=== PATIENT | male | born 1945 | race African-American/Black ===

== ENCOUNTER 2018-04-17 13:35 | Inpatient (IN) | payer OTHER ==
[~2018-04-17] VITALS: Ht 180.3 cm; Wt 83.0 kg
[2018-04-17] MEDS ORDERED: htn meds (13:55)
[2018-04-17] MEDS ORDERED: [UNRECOGNIZED DRUG - OTHER] (13:55)
[2018-04-17] MEDS ORDERED: [UNRECOGNIZED DRUG - REMARK] (13:55)
[2018-04-17] MEDS ORDERED: IPRATROPIUM BROMIDE 0.5 MG/2.5 ML NEBU. NEB ONE (14:00)
[2018-04-17] MEDS ORDERED: ALBUTEROL SULFATE 2.5 MG/3 ML NEBU. CONT NEB ONE ×2 (14:00→15:30)
[2018-04-17] MEDS ORDERED: methylPREDNISolone SOD SUCC PF 125 MG/2 ML VIAL. IV ONE (14:00)
[2018-04-17 14:03] LABS: BASO # 0.1 x10^3/uL (0.0-0.2); BASO % 1 % (0-3); EOS # 0.3 x10^3/uL (0.0-0.7); EOS % 2 % (0-3); HEMATOCRIT 29.6 % (39.0-53.0); LYMPH # 1.2 x10^3/uL (1.0-4.8); LYMPH % 8 % (24-48); MEAN CORPUSCULAR HEMOGLOBIN 26 pg (25-35); MEAN CORPUSCULAR HGB CONC 34 g/dL (31-37); MEAN CORPUSCULAR VOLUME 78 fL (79-100); MONO # 0.7 x10^3/uL (0.0-1.1); MONO % 5 % (0-9); NEUT % 85 % (31-73); PLATELET COUNT 440 x10^3/uL (140-400); RED CELL DISTRIBUTION WIDTH 17.3 % (11.5-14.5); WHITE BLOOD COUNT 15.3 x10^3/uL (4.0-11.0)
[2018-04-17 14:14] LABS: CALCIUM 9.8 mg/dL (8.5-10.1); CREATININE 1.9 mg/dL (0.7-1.3); GFR 35.1; POTASSIUM 3.9 mmol/L (3.5-5.1)
--- NOTE | 2018-04-17 14:20 | RAD ---
PORTABLE CHEST 1V INDICATION: SOB, COUGH, CHEST PAIN, FATIGUE, WEAKNESS, COPD, HX HYPERTENTION, HX HYPERLIPDEMIA. COMPARISON: None. FINDINGS: Normal lung volume. No focal consolidation. Bilateral hilar fullness. No pleural effusion or pneumothorax. Cardiomediastinal silhouette and great vessels are normal. No acute osseous abnormality. IMPRESSION: 1. No focal consolidation. 2. Bilateral hilar fullness which could relate to pulmonary hypertension. Hilar adenopathy not excluded. Recommend short-term follow-up radiographs. Alternatively, CT chest with contrast can be considered. Electronically signed by: Ray Dukes MD (04/17/2018 2:16 PM) [facility]
[2018-04-17 14:28] LABS: % BASOS 3 % (0-3); % EOS 4 % (0-5); % LYMPHS 12 % (24-48); % MONOS 4 % (0-10); % SEGS 77 % (35-66); PLT ESTIMATE ADEQUATE (ADEQUATE)
[2018-04-17 14:29] LABS: ANISOCYTOSIS SLIGHT; MICROCYTOSIS SLIGHT
[2018-04-17] MEDS ORDERED: HYDROcodone/APAP 5/325MG 1 TAB TABLET PO ONE (14:45)
[2018-04-17] MEDS ORDERED: IBUPROFEN 400 MG TABLET. PO ONE (14:45)
--- NOTE | 2018-04-17 15:10 | PHYS DOC ---
Past Medical History Past Medical History: Asthma, Diabetes-Type II, Hypertension Alcohol Use: Sober Drug Use: Marijuana Adult General Chief Complaint Chief Complaint: SHORTNESS OF BREATH HPI HPI Patient is a 72 year old male who presents with dyspnea. Patient has had worsening asthma symptoms over the last 5 days. He has had a cough productive of what he describes to be purulent sputum. He has had some chills but no fever. The patient does have a lifelong history of asthma. Today, he presents to the ER stating that his medications at home were not relieving his dyspnea symptoms. He does not normally use oxygen at home. Denies chest pain. No LE edema or orthopnea. Review of Systems Review of Systems Constitutional: Denies fever or chills Eyes: Denies change in visual acuity HENT: Denies nasal congestion Respiratory: dyspnea and cough described above Cardiovascular: No additional information not addressed in HPI GI: Denies abdominal pain, nausea, vomiting : Denies dysuria or hematuria Musculoskeletal: Denies back pain Integument: Denies rash or skin lesions Neurologic: Denies headache All other systems were reviewed and found to be within normal limits, except as documented in this note. Current Medications Current Medications Current Medications Medications (Trade) Dose Ordered Sig/Jacob Start Time Stop Time Status Last Admin Dose Admin Acetaminophen/ Hydrocodone Bitart (Lortab 5/325) 2 tab 1X ONCE 04/17/18 14:45 04/17/18 14:46 UNV Albuterol Sulfate (Ventolin Neb Soln) 10 mg 1X ONCE 04/17/18 15:30 04/17/18 15:31 DC 04/17/18 15:33 10 MG Azithromycin 250 ml @ 250 mls/hr 1X ONCE 04/17/18 16:15 04/17/18 17:14 Ceftriaxone Sodium 50 ml @ 100 mls/hr 1X ONCE 04/17/18 16:15 04/17/18 16:44 Ibuprofen (Motrin) 800 mg 1X ONCE 04/17/18 14:45 04/17/18 14:46 UNV Ipratropium [place] (Atrovent) 0.5 mg 1X ONCE 04/17/18 14:00 04/17/18 14:01 DC 04/17/18 13:59 0.5 MG Magnesium Sulfate 50 ml @ 25 mls/hr 1X ONCE 04/17/18 15:15 04/17/18 17:14 04/17/18 15:26 25 MLS/HR Methylprednisolone Sodium Succinate (SOLU-Medrol 125MG VIAL) 125 mg 1X ONCE 04/17/18 14:00 04/17/18 14:01 DC 04/17/18 14:05 125 MG Sodium Chloride 1,000 ml @ 1,000 mls/hr 1X ONCE 04/17/18 15:15 04/17/18 16:14 DC 04/17/18 15:26 1,000 MLS/HR Allergies Allergies Allergies Coded Allergies Type Severity Reaction Last Updated Verified No Known Drug Allergies 04/17/18 No Physical Exam Physical Exam Constitutional: Well developed, well nourished, mild respiratory distress, ill- appearing, coughing HENT: Normocephalic, atraumatic, bilateral external ears normal, oropharynx moist Eyes: PERRLA, EOMI, conjunctiva normal Neck: Normal range of motion, no tenderness Cardiovascular: regular tachy heart rate regular rhythm, no murmur Lungs & Thorax: bilateral diminished lung sounds with prolonged expiratory phase and wheezes in all ricardo, coughing a wet sounding cough during the interview Abdomen: Bowel sounds normal, soft Skin: Warm, dry, no erythema, no rash Extremities: No tenderness, no edema Neurologic: Alert and oriented X 3 Psychologic: Affect normal Current Patient Data Vital Signs Vital Signs Date Time Temp Pulse Resp B/P (MAP) Pulse Ox O2 Delivery O2 Flow Rate FiO2 04/17/18 15:38 100 Room Air 04/17/18 13:39 97.8 107 26 129/79 (96) 97.8 Lab Values Laboratory Tests Test 04/17/18 13:46 White Blood Count 15.3 x10^3/uL (4.0-11.0) H Red Blood Count 3.80 x10^6/uL (4.30-5.70) L Hemoglobin 10.0 g/dL (13.0-17.5) L Hematocrit 29.6 % (39.0-53.0) L Mean Corpuscular Volume 78 fL (79-100) L Mean Corpuscular Hemoglobin 26 pg (25-35) Mean Corpuscular Hemoglobin Concent 34 g/dL (31-37) Red Cell Distribution Width 17.3 % (11.5-14.5) H Platelet Count 440 x10^3/uL (140-400) H Neutrophils (%) (Auto) 85 % (31-73) H Lymphocytes (%) (Auto) 8 % (24-48) L Monocytes (%) (Auto) 5 % (0-9) Eosinophils (%) (Auto) 2 % (0-3) Basophils (%) (Auto) 1 % (0-3) Neutrophils # (Auto) 13.0 x10^3uL (1.8-7.7) H Lymphocytes # (Auto) 1.2 x10^3/uL (1.0-4.8) Monocytes # (Auto) 0.7 x10^3/uL (0.0-1.1) Eosinophils # (Auto) 0.3 x10^3/uL (0.0-0.7) Basophils # (Auto) 0.1 x10^3/uL (0.0-0.2) Segmented Neutrophils % 77 % (35-66) H Lymphocytes % 12 % (24-48) L Monocytes % 4 % (0-10) Eosinophils % 4 % (0-5) Basophils % 3 % (0-3) Platelet Estimate Adequate (ADEQUATE) Large Platelets Occ Anisocytosis Slight Microcytosis Slight Sodium Level 137 mmol/L (136-145) Potassium Level 3.9 mmol/L (3.5-5.1) Chloride Level 102 mmol/L (98-107) Carbon Dioxide Level 24 mmol/L (21-32) Anion Gap 11 (6-14) Blood Urea Nitrogen 14 mg/dL (8-26) Creatinine 1.9 mg/dL (0.7-1.3) H Estimated GFR (Cockcroft-Gault) 35.1 Glucose Level 204 mg/dL (70-99) H Calcium Level 9.8 mg/dL (8.5-10.1) Troponin I Quantitative < 0.017 ng/mL (0.000-0.055) UD-Qna-J-Type Natriuretic Peptide 391 pg/mL (0-124) H Laboratory Tests 04/17/18 13:46 Laboratory Tests 04/17/18 13:46 EKG EKG No STEMI Interpretation Time: 13:50 Radiology/Procedures Radiology/Procedures CXR: FINDINGS: Normal lung volume. No focal consolidation. Bilateral hilar fullness. No pleural effusion or pneumothorax. Cardiomediastinal silhouette and great vessels are normal. No acute osseous abnormality. IMPRESSION: 1. No focal consolidation. 2. Bilateral hilar fullness which could relate to pulmonary hypertension. Hilar adenopathy not excluded. Recommend short-term follow-up radiographs. Alternatively, CT chest with contrast can be considered. CT chest: Findings: There is a mass in the left lower lobe extending back from the hilum. It measures about 7.1 cm AP and 4.6 cm mediolaterally. There are some peripheral infiltrate-like opacities elsewhere in the left lower lobe. An area of opacity is also seen extending anteriorly in the right middle lobe. This has more the appearance of a region of consolidation in the lung, although neoplasm is possible. This area measures about 5.9 cm in greatest transverse dimension, but only about 1.6 cm craniocaudally. Other ill-defined opacities are seen scattered through the right middle and lower lobes. These could be infectious, although other areas of neoplasm cannot be excluded. The left lower lobe bronchus is occluded extending into the area of the mass. The mass is inseparable from the left hilum, but no separate enlarged left hilar lymph nodes are seen. There is subcarinal soft tissue fullness suspicious for mild adenopathy. Images through the upper abdomen show a left renal cyst. There is mild thickening of the left adrenal gland without evidence of a discrete nodule. IMPRESSION: There is a left lower lobe abnormality suspicious for malignancy. Other areas of opacity in the lungs may all be infectious/inflammatory, although multifocal malignancy or metastatic disease is possible. Course & Med Decision Making Course & Med Decision Making Pertinent Labs and Imaging studies reviewed. (See chart for details) 16:20 patient is evaluated in the emergency department for some respiratory symptoms and asthma and productive cough. The patient does have a significant tobacco history of having smoked up to 2 packs of cigarettes daily from ages 19 through age 71. He does not currently use tobacco. His workup in the ER is positive for a suspicious lung mass. His white blood cell count was mildly elevated. Unclear if his results represent infection or malignancy. CT scan was completed for further evaluation but the patient's creatinine was elevated so contrast could not be used. He was given 1 L of normal saline in the ER. Pro- calcitonin is added to his lab panel. He is empirically started on Rocephin and azithromycin. He will be admitted to the hospitalist service. Consults are placed for nephrology and pulmonology to see the patient. Of note, the patient denies any prior history of kidney failure. Prior to admission, all results are reviewed and discussed with the patient and his and all of their questions are answered. He is agreeable to the admission plan of care. Dragon Disclaimer Dragon Disclaimer This electronic medical record was generated, in whole or in part, using a voice recognition dictation system. Departure Departure Referrals: BARRY DIEHL (PCP) ZACH ALVAREZ DO Apr 17, 2018 15:10
[2018-04-17] MEDS ORDERED: IV NORMAL SALINE 1000ML BAG 1,000 ML IV ONE (15:15)
[2018-04-17] MEDS ORDERED: MAGNESIUM SULFATE 2GM 50 ML IV ONE (15:15)
--- NOTE | 2018-04-17 16:01 | RAD ---
CT CHEST WO CONTRAST dated 04/17/2018 3:25 PM Indication:SHORTNESS OF BREATH, AND COUGH, HX OF ASTHMA Comparison: Chest radiograph of earlier in the day. Technique: Noncontrast images were performed. Sagittal and coronal reconstructions were obtained. One or more of the following individualized dose reduction techniques were utilized for this examination: 1. Automated exposure control 2. Adjustment of the mA and/or kV according to patient size 3. Use of iterative reconstruction technique Findings: There is a mass in the left lower lobe extending back from the hilum. It measures about 7.1 cm AP and 4.6 cm mediolaterally. There are some peripheral infiltrate-like opacities elsewhere in the left lower lobe. An area of opacity is also seen extending anteriorly in the right middle lobe. This has more the appearance of a region of consolidation in the lung, although neoplasm is possible. This area measures about 5.9 cm in greatest transverse dimension, but only about 1.6 cm craniocaudally. Other ill-defined opacities are seen scattered through the right middle and lower lobes. These could be infectious, although other areas of neoplasm cannot be excluded. The left lower lobe bronchus is occluded extending into the area of the mass. The mass is inseparable from the left hilum, but no separate enlarged left hilar lymph nodes are seen. There is subcarinal soft tissue fullness suspicious for mild adenopathy. Images through the upper abdomen show a left renal cyst. There is mild thickening of the left adrenal gland without evidence of a discrete nodule. IMPRESSION: There is a left lower lobe abnormality suspicious for malignancy. Other areas of opacity in the lungs may all be infectious/inflammatory, although multifocal malignancy or metastatic disease is possible. Electronically signed by: Xavier Green Jr., MD (04/17/2018 3:58 PM) [facility] [place]
[2018-04-17] MEDS ORDERED: AZITHRMYCN 500MG IVPB FOR OMNI 250 ML IV ONE (16:15)
[2018-04-17] MEDS ORDERED: ACETAMINOPHEN 325 MG TABLET. PO PRN (17:00)
[2018-04-17] MEDS ORDERED: ONDANSETRON PF 4 MG/2 ML VIAL. IV PRN ×2 (17:00→20:15)
--- NOTE | 2018-04-17 17:49 | PDOC1 ---
History and Physical Date of Admission Date of Admission DATE: 04/17/18 TIME: 17:47 Identification/Chief Complaint Chief Complaint Shortness of breath History of Present Illness History of Present Illness 72 year old male w/ PMHx DM, COPD, ex-smoker who p/w dyspnea. Patient has had worsening asthma symptoms over the last 5 days. He has had a cough productive of what he describes to be purulent brownish sputum. He has had some chills but no fever. Today, he presents to the ER stating that his medications (albuterol ) at home were not relieving his dyspnea symptoms. He does not normally use oxygen at home. Denies chest pain. No LE edema or orthopnea. In ED he was noted to be very rhonchorous and wheezing, improved with 1 hour of nebulizers and CXR noted bilateral infiltrates, on CT was noted to be a 7.1 cm AP and 4.6 cm mediolaterally mass in the left lower lobe intruding on the bronchus and a 5.9 x 1.6cm infiltrate in the right lung suspicious for pneumonia. He was also noted with a Cr of 1.9, he notes he has no history of renal disease. The patient does have a lifelong history of asthma, was told via CXR 2 years ago he had emphysema and at the time he stopped smoking. He was also diagnosed with diabetes 15 years ago and noted he wanted to stop taking medications so made an active effort over 2 years ago to lose weight and he intentionally lost 175 pounds with portion control and exercise. 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 He is being admitted for the above respiratory problems and renal failure. Past Medical History Cardiovascular: No pertinent hx Pulmonary: Asthma, COPD GI: No pertinent hx Heme/Onc: No pertinent hx Hepatobiliary: No pertinent hx Psych: No pertinent hx Rheumatologic: No pertinent hx Infectious disease: No pertinent hx ENT: No pertinent hx Renal/: Benign prostatic enlarg. Endocrine: Diabetes Dermatology: No pertinent hx Past Surgical History Past Surgical History: Cholecystectomy, Other (TURP) Family History Family History: Diabetes Family History: Parent (Diabetes in mother and father) Social History Smoke: Quit (2 PPD smoker, quit 2 years ago) ALCOHOL: none Drugs: None Current Medications Current Medications Current Medications Albuterol Sulfate (Ventolin Neb Soln) 10 mg 1X ONCE CONT NEB Last administered on 04/17/18at 13:59; Start 04/17/18 at 14:00; Stop 04/17/18 at 14 :01; Status DC Ipratropium [place] (Atrovent) 0.5 mg 1X ONCE NEB Last administered on at 13:59; Start 04/17/18 at 14:00; Stop 04/17/18 at 14:01; Status DC Methylprednisolone Sodium Succinate (SOLU-Medrol 125MG VIAL) 125 mg 1X ONCE IV Last administered on 04/17/18at 14:05; Start 04/17/18 at 14:00; Stop at 14:01; Status DC Ibuprofen (Motrin) 800 mg 1X ONCE PO ; Start 04/17/18 at 14:45; Stop at 14:46; Status UNV Acetaminophen/ Hydrocodone Bitart (Lortab 5/325) 2 tab 1X ONCE PO ; Start at 14:45; Stop 04/17/18 at 14:46; Status UNV Sodium Chloride 1,000 ml @ 1,000 mls/hr 1X ONCE IV Last administered on 04/17at 15:26; Start 04/17/18 at 15:15; Stop 04/17/18 at 16:14; Status DC Magnesium Sulfate 50 ml @ 25 mls/hr 1X ONCE IV Last administered on at 15:26; Start 04/17/18 at 15:15; Stop 04/17/18 at 17:14; Status DC Albuterol Sulfate (Ventolin Neb Soln) 10 mg 1X ONCE CONT NEB Last administered on 04/17/18at 15:33; Start 04/17/18 at 15:30; Stop 04/17/18 at 15 :31; Status DC Azithromycin 250 ml @ 250 mls/hr 1X ONCE IV Last administered on 04/17/18at 17:25; Start 04/17/18 at 16:15; Stop 04/17/18 at 17:14; Status DC Ceftriaxone Sodium 50 ml @ 100 mls/hr 1X ONCE IV Last administered on at 16:37; Start 04/17/18 at 16:15; Stop 04/17/18 at 16:44; Status DC Ondansetron HCl (Zofran) 4 mg PRN Q8HRS PRN IV NAUSEA/VOMITING; Start at 17:00; Stop 04/18/18 at 16:59 Acetaminophen (Tylenol) 650 mg PRN Q4HRS PRN PO FEVER; Start 04/17/18 at 17:00 ; Stop 04/18/18 at 16:59 Albuterol/ Ipratropium (Duoneb) 3 ml RTQID NEB ; Start 04/17/18 at 20:00; Stop 04/18/18 at 19:59 Active Scripts Active Reported [asthma meds] [htn meds] [diabetes type 2 meds] Allergies Allergies: Coded Allergies: No Known Drug Allergies (Unverified , 04/17/18) ROS General: No: Chills, Night Sweats, Fatigue, Malaise, Appetite, Other PSYCHOLOGICAL ROS: No: Anxiety, Behavioral Disorder, Concentration difficultie , Decreased libido, Depression, Disorientation, Hallucinations, Hostility, Irritablity, Memory difficulties, Mood Swings, Obsessive thoughts, Physical abuse, Sexual abuse, Sleep disturbances, Suicidal ideation, Other Eyes: No Blurry vision, No Decreased vision, No Double vision, No Dry eyes, No Excessive tearing, No Eye Pain, No Itchy Eyes, No Loss of vision, No Photophobia , No Scotomata, No Uses contacts, No Uses glasses, No Other HEENT: No: Heacaches, Visual Changes, Hearing change, Nasal congestion, Nasal discharge, Oral lesions, Sinus pain, Sore Throat, Epistaxis, Sneezing, Snoring, Tinnitus, Vertigo, Vocal changes, Other ALLERGY AND IMMUNOLOGY: No: Hives, Insect Bite Sensitivity, Itchy/Watery Eyes, Nasal Congestion, Post Nasal Drip, Seasonal Allergies, Other Hematological and Lymphatic: No: Bleeding Problems, Blood Clots, Blood Transfusions, Brusing, Night Sweats, Pallor, Swollen Lymph Nodes, Other ENDOCRINE: No: Breast Changes, Galactorrhea, Hair Pattern Changes, Hot Flashes , Malaise/lethargy, Mood Swings, Palpitations, Polydipsia/polyuria, Skin Changes , Temperature Intolerance, Unexpected Weight Changes, Other Breast: No New/Changing Breast Lumps, No Nipple changes, No Nipple discharge, No Other Respiratory: YES: Cough, Shortness of breath, SOB with excertion, Sputum Changes, Tachypnea, Wheezing; No: Hemoptysis, Orthopnea, Pleuritic Pain, Stridor, Other Cardiovascular: No Chest Pain, No Palpitations, No Orthopnea, No Paroxysmal Noc. Dyspnea, No Edema, No Lt Headedness, No Other Gastrointestinal: No Nausea, No Vomiting, No Abdominal Pain, No Diarrhea, No Constipation, No Melena, No Hematochezia, No Other Genitourinary: No Dysuria, No Frequency, No Incontinence, No Hematuria, No Retention, No Discharge, No Urgency, No Pain, No Flank Pain, No Other, No , No , No , No , No , No , No Musculoskeletal: No Gait Disturbance, No Joint Pain, No Joint Stiffness, No Joint Swelling, No Muscle Pain, No Muscular Weakness, No Pain In:, No Swelling In:, No Other Neurological: No Behavorial Changes, No Bowel/Bladder ControlChng, No Confusion , No Dizziness, No Gait Disturbance, No Headaches, No Impaired Coord/balance, No Memory Loss, No Numbness/Tingling, No Seizures, No Speech Problems, No Tremors, No Visual Changes, No Weakness, No Other Skin: No Dry Skin, No Eczema, No Hair Changes, No Lumps, No Mole Changes, No Mottling, No Nail Changes, No Pruritus, No Rash, No Skin Lesion Changes, No Other, No Acne Physical Exam General: Alert, Oriented X3, Cooperative, No acute distress HEENT: Atraumatic, PERRLA, EOMI, Mucous membr. moist/pink Lungs: Other (BIlateral rhonchi and scattered wheezing) Heart: S1S2, RRR, no murmurs Abdomen: Normal bowel sounds, Soft, No tenderness, No hepatosplenomegaly, No masses Rectal Exam: not examined Extremities: No clubbing, No cyanosis, No edema, Normal pulses, No tenderness/ swelling Skin: No rashes, No breakdown, No significant lesion Neuro: Normal gait, Normal speech, Strength at 5/5 X4 ext, Normal tone, Sensation intact, Cranial nerves 3-12 NL, Reflexes 2+ Psych/Mental Status: Mental status NL, Mood NL Vitals Vitals Vital Signs Date Time Temp Pulse Resp B/P (MAP) Pulse Ox O2 Delivery O2 Flow Rate FiO2 04/17/18 15:38 100 Room Air 04/17/18 13:39 97.8 107 26 129/79 (96) 97.8 Labs Labs Laboratory Tests Test 04/17/18 13:46 White Blood Count 15.3 x10^3/uL (4.0-11.0) Red Blood Count 3.80 x10^6/uL (4.30-5.70) Hemoglobin 10.0 g/dL (13.0-17.5) Hematocrit 29.6 % (39.0-53.0) Mean Corpuscular Volume 78 fL (79-100) Mean Corpuscular Hemoglobin 26 pg (25-35) Mean Corpuscular Hemoglobin Concent 34 g/dL (31-37) Red Cell Distribution Width 17.3 % (11.5-14.5) Platelet Count 440 x10^3/uL (140-400) Neutrophils (%) (Auto) 85 % (31-73) Lymphocytes (%) (Auto) 8 % (24-48) Monocytes (%) (Auto) 5 % (0-9) Eosinophils (%) (Auto) 2 % (0-3) Basophils (%) (Auto) 1 % (0-3) Neutrophils # (Auto) 13.0 x10^3uL (1.8-7.7) Lymphocytes # (Auto) 1.2 x10^3/uL (1.0-4.8) Monocytes # (Auto) 0.7 x10^3/uL (0.0-1.1) Eosinophils # (Auto) 0.3 x10^3/uL (0.0-0.7) Basophils # (Auto) 0.1 x10^3/uL (0.0-0.2) Segmented Neutrophils % 77 % (35-66) Lymphocytes % 12 % (24-48) Monocytes % 4 % (0-10) Eosinophils % 4 % (0-5) Basophils % 3 % (0-3) Platelet Estimate Adequate (ADEQUATE) Large Platelets Occ Anisocytosis Slight Microcytosis Slight Sodium Level 137 mmol/L (136-145) Potassium Level 3.9 mmol/L (3.5-5.1) Chloride Level 102 mmol/L (98-107) Carbon Dioxide Level 24 mmol/L (21-32) Anion Gap 11 (6-14) Blood Urea Nitrogen 14 mg/dL (8-26) Creatinine 1.9 mg/dL (0.7-1.3) Estimated GFR (Cockcroft-Gault) 35.1 Glucose Level 204 mg/dL (70-99) Calcium Level 9.8 mg/dL (8.5-10.1) Troponin I Quantitative < 0.017 ng/mL (0.000-0.055) NO-Ftx-Q-Type Natriuretic Peptide 391 pg/mL (0-124) Laboratory Tests Test 04/17/18 13:46 White Blood Count 15.3 x10^3/uL (4.0-11.0) Red Blood Count 3.80 x10^6/uL (4.30-5.70) Hemoglobin 10.0 g/dL (13.0-17.5) Hematocrit 29.6 % (39.0-53.0) Mean Corpuscular Volume 78 fL (79-100) Mean Corpuscular Hemoglobin 26 pg (25-35) Mean Corpuscular Hemoglobin Concent 34 g/dL (31-37) Red Cell Distribution Width 17.3 % (11.5-14.5) Platelet Count 440 x10^3/uL (140-400) Neutrophils (%) (Auto) 85 % (31-73) Lymphocytes (%) (Auto) 8 % (24-48) Monocytes (%) (Auto) 5 % (0-9) Eosinophils (%) (Auto) 2 % (0-3) Basophils (%) (Auto) 1 % (0-3) Neutrophils # (Auto) 13.0 x10^3uL (1.8-7.7) Lymphocytes # (Auto) 1.2 x10^3/uL (1.0-4.8) Monocytes # (Auto) 0.7 x10^3/uL (0.0-1.1) Eosinophils # (Auto) 0.3 x10^3/uL (0.0-0.7) Basophils # (Auto) 0.1 x10^3/uL (0.0-0.2) Segmented Neutrophils % 77 % (35-66) Lymphocytes % 12 % (24-48) Monocytes % 4 % (0-10) Eosinophils % 4 % (0-5) Basophils % 3 % (0-3) Platelet Estimate Adequate (ADEQUATE) Large Platelets Occ Anisocytosis Slight Microcytosis Slight Sodium Level 137 mmol/L (136-145) Potassium Level 3.9 mmol/L (3.5-5.1) Chloride Level 102 mmol/L (98-107) Carbon Dioxide Level 24 mmol/L (21-32) Anion Gap 11 (6-14) Blood Urea Nitrogen 14 mg/dL (8-26) Creatinine 1.9 mg/dL (0.7-1.3) Estimated GFR (Cockcroft-Gault) 35.1 Glucose Level 204 mg/dL (70-99) Calcium Level 9.8 mg/dL (8.5-10.1) Troponin I Quantitative < 0.017 ng/mL (0.000-0.055) DJ-Uea-G-Type Natriuretic Peptide 391 pg/mL (0-124) VTE Prophylaxis Ordered VTE Prophylaxis Devices: No VTE Pharmacological Prophylaxi: Yes Assessment/Plan Assessment/Plan A/P: Acute COPD exacerbation - steroids, nebs, consult pulm Right middle lobe pneumonia - appears to be an infiltrate, will treat as CAP with azithromycin and rocephin Lung Mass - Left lower lobe infiltrating the bronchus, will consult pulm for possible bronchoscopy and endobronchial biopsy vs EBUS ARF - likely prerenal from his illness, will start IVF, consult nephro DM2 - diet controlled, will place on SSI BPH - no symptoms currently, states he is s/p turp FEN - ADA diet PPX - heparin FULL CODE Inpatient for at least 2 midnights for above complicated illness JOELLEN BEAUCHAMP MD Apr 17, 2018 17:49
[2018-04-17 19:00] VITALS: BP 114/78
[2018-04-17] MEDS ORDERED: LISI10TA2 PO (19:04)
[2018-04-17] MEDS ORDERED: METF500T16 PO (19:04)
[2018-04-17] MEDS ORDERED: IPRA3AMP29 INH (19:05)
[2018-04-17] MEDS: IPRATRPIUM/ALBUTEROL 0.5/2.5MG 3 ML NEBU. NEB SCH (19:46)
[2018-04-17] MEDS ORDERED: DEXTROSE 50% 25 GM / 50ML DISP.SYRIN. IV PRN (20:00)
[2018-04-17] MEDS ORDERED: oxyCODONE IR 5 MG TABLET PO PRN (20:15)
[2018-04-17] MEDS: SENNOSIDES/DOCUSATE 8.6/50MG TABLET. PO SCH (20:38)
[2018-04-17] MEDS: IV RINGERS,LACTATED 1000ML 1,000 ML IV SCH (20:42)
[2018-04-17] MEDS: guaiFENesin DM 200MG/20MG 10 ML SYRUP PO PRN (20:42)
[2018-04-17] MEDS: HEPARIN for SUB-Q USE 5,000 UNIT/ML VIAL. SQ SCH (20:43)
[2018-04-17] MEDS: INSULIN LISPRO 300 UNITS/3 ML INSULN.PEN. SQ SCH (21:16)
[2018-04-17 23:00] VITALS: BP 137/80
[2018-04-18] MEDS: guaiFENesin DM 200MG/20MG 10 ML SYRUP PO PRN (00:50)
[2018-04-18 03:00] VITALS: BP 141/81
[2018-04-18 05:50] LABS: BASO % 0 % (0-3); EOS % 0 % (0-3); HEMATOCRIT 26.7 % (39.0-53.0); HEMOGLOBIN 8.7 g/dL (13.0-17.5); LYMPH % 6 % (24-48); MEAN CORPUSCULAR HEMOGLOBIN 26 pg (25-35); MEAN CORPUSCULAR HGB CONC 33 g/dL (31-37); MEAN CORPUSCULAR VOLUME 79 fL (79-100); MONO # 0.6 x10^3/uL (0.0-1.1); MONO % 4 % (0-9); NEUT % 90 % (31-73); PLATELET COUNT 364 x10^3/uL (140-400); RED CELL DISTRIBUTION WIDTH 17.4 % (11.5-14.5); WHITE BLOOD COUNT 15.6 x10^3/uL (4.0-11.0)
[2018-04-18] MEDS: IV RINGERS,LACTATED 1000ML 1,000 ML IV SCH ×2 (05:51→17:00)
[2018-04-18 06:07] LABS: CALCIUM 8.7 mg/dL (8.5-10.1); CREATININE 1.7 mg/dL (0.7-1.3); GFR 48.3; POTASSIUM 4.4 mmol/L (3.5-5.1)
[2018-04-18 07:00] VITALS: BP 154/71
[2018-04-18] MEDS: IPRATRPIUM/ALBUTEROL 0.5/2.5MG 3 ML NEBU. NEB SCH ×4 (07:46→20:19)
[2018-04-18] MEDS: INSULIN LISPRO 300 UNITS/3 ML INSULN.PEN. SQ SCH ×4 (08:00→21:50)
--- NOTE | 2018-04-18 08:06 | EKG ---
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
[2018-04-18] MEDS: SENNOSIDES/DOCUSATE 8.6/50MG TABLET. PO SCH ×2 (08:23→21:41)
[2018-04-18] MEDS: HEPARIN for SUB-Q USE 5,000 UNIT/ML VIAL. SQ SCH ×2 (08:23→21:50)
[2018-04-18] MEDS ORDERED: levOFLOXacin PER PHARMACY. MC PRN (10:00)
[2018-04-18] MEDS ORDERED: traMADol 50 MG TABLET PO PRN (10:00)
[2018-04-18] MEDS ORDERED: MORPHINE SULFATE 2 MG/ML VIAL. IV PRN (10:00)
[2018-04-18] MEDS ORDERED: DOCUSATE SODIUM 100 MG CAPSULE. PO PRN (10:00)
[2018-04-18] MEDS ORDERED: ACETAMINOPHEN 325 MG TABLET. PO PRN (10:00)
[2018-04-18] MEDS ORDERED: ALBUTEROL SULFATE 2.5 MG/3 ML NEBU. NEB PRN (10:00)
[2018-04-18] MEDS ORDERED: ONDANSETRON PF 4 MG/2 ML VIAL. IV PRN (10:00)
[2018-04-18 11:00] VITALS: BP 146/70
--- NOTE | 2018-04-18 11:09 | CONS ---
DATE OF CONSULTATION: ATTENDING PHYSICIAN: Dr. Galan. REASON FOR CONSULTATION: Lung mass. HISTORY OF PRESENT ILLNESS: The patient is a 72-year-old male who has been a smoker for at least 50 years, quit a year ago. He presented to the hospital with history of shortness of breath and cough for 3 days. Cough is mostly nonproductive. No chest pain, no headache, no nausea or vomiting, no diarrhea, no focal weakness. No skin rash. No significant weight loss. He underwent CT chest, which was reviewed by me. The patient has a mass-like consolidation involving the left lower lobe. There may be an endobronchial lesion in the left lower lobe bronchus. There is also left hilar prominence. The patient also has a consolidation in the right middle lobe. I have been asked to see him for further evaluation. PAST MEDICAL HISTORY: Significant for history of suspected COPD, history of BPH and diabetes. PAST SURGICAL HISTORY: Cholecystectomy and TURP. SOCIAL HISTORY: Smoker for 50 years, quit a year ago. Does not drink alcohol. ALLERGIES: None. CURRENT MEDICATIONS: Reviewed as listed in the MRAD including antibiotics and IV steroids and DuoNeb. REVIEW OF SYSTEMS: Twelve-point system obtained. Pertinent positives discussed in my history of present illness, otherwise noncontributory. All systems that were negative were reviewed as well. PHYSICAL EXAMINATION: VITAL SIGNS: Reviewed, pulse ox 95% on room air. HEENT: PERRLA. Sclerae nonicteric. NECK: Supple. LUNGS: With diminished breath sounds posteriorly. No wheezing. CARDIOVASCULAR: Regular rate and rhythm. ABDOMEN: Soft, nontender. EXTREMITIES: With no pitting edema. LABORATORY DATA: Reviewed. White cell count 15.6, hemoglobin 8.7 and platelets are 364. BUN and creatinine 16 and 1.7. IMPRESSION: 1. Dyspnea secondary to multifactorial etiologies including acute exacerbation of chronic obstructive pulmonary disease and suspected bronchogenic cancer involving the left lower lobe and possible in the right middle lobe. 2. Abnormal CT chest with mass-like consolidation involving the left lower lobe with possible endobronchial lesion in the left lower lobe as well. There is left hilar prominence and there is consolidation in the right middle lobe. Malignancy is a concern, although he does not have any symptoms suggesting malignancy such as weight loss. Bronchoscopy is scheduled for tomorrow and he agrees with that. 3. Renal insufficiency. 4. Leukocytosis could be postobstructive pneumonia. RECOMMENDATIONS: 1. Discussed with the patient regarding the risk and benefits of bronchoscopy and he agrees to proceed with it. 2. N.p.o. past midnight and bronchoscopy will be scheduled in the morning. 3. Continue present bronchodilators. 4. Continue IV steroids. 5. Continue antibiotics. 6. Further recommendations to follow after bronchoscopy. YUSRA BARAKAT MD DR: DARIEN/purnima JOB#: [id number] / [id number]
--- NOTE | 2018-04-18 12:13 | PDOC ---
PROGRESS NOTES Chief Complaint Chief Complaint Acute COPD exacerbation Right middle lobe pneumonia - Lung Mass ARF vs. CKD3 DM2 - BPH - prevous smoker microcytic anemia plan: fu with pulm, talked to pulm, bronch with bx tmr add duoneb, albuterol prn, solumedrol tid, levaquin consult renal, US renal pending ivf for now lisinopril, metformin held, ssi cough meds anemia panel dvt, gi ppx History of Present Illness History of Present Illness ROS: no fever, chills chest pain moderate sob, some cough, bl moderate wheezing. wants go home anemia, denies weight loss or gib cr 1.7 from 1.9 Vitals Vitals Vital Signs Date Time Temp Pulse Resp B/P (MAP) Pulse Ox O2 Delivery O2 Flow Rate FiO2 04/18/18 11:49 Room Air 04/18/18 11:00 98.1 78 18 146/70 (95) 91 98.1 Physical Exam General: Alert, Oriented X3, Cooperative, No acute distress Heart: Regular rate, Normal S1, Normal S2 Lungs: Wheezing (bl moderate) Abdomen: Normal bowel sounds, Soft, No tenderness, No hepatosplenomegaly, No masses Extremities: No clubbing, No cyanosis, No edema, Normal pulses, No tenderness/ swelling Skin: No rashes, No breakdown, No significant lesion Labs LABS Laboratory Tests Test 04/17/18 13:46 04/17/18 18:16 04/17/18 21:03 04/18/18 05:05 White Blood Count 15.3 x10^3/uL (4.0-11.0) 15.6 x10^3/uL (4.0-11.0) Red Blood Count 3.80 x10^6/uL (4.30-5.70) 3.40 x10^6/uL (4.30-5.70) Hemoglobin 10.0 g/dL (13.0-17.5) 8.7 g/dL (13.0-17.5) Hematocrit 29.6 % (39.0-53.0) 26.7 % (39.0-53.0) Mean Corpuscular Volume 78 fL (79-100) 79 fL (79-100) Mean Corpuscular Hemoglobin 26 pg (25-35) 26 pg (25-35) Mean Corpuscular Hemoglobin Concent 34 g/dL (31-37) 33 g/dL (31-37) Red Cell Distribution Width 17.3 % (11.5-14.5) 17.4 % (11.5-14.5) Platelet Count 440 x10^3/uL (140-400) 364 x10^3/uL (140-400) Neutrophils (%) (Auto) 85 % (31-73) 90 % (31-73) Lymphocytes (%) (Auto) 8 % (24-48) 6 % (24-48) Monocytes (%) (Auto) 5 % (0-9) 4 % (0-9) Eosinophils (%) (Auto) 2 % (0-3) 0 % (0-3) Basophils (%) (Auto) 1 % (0-3) 0 % (0-3) Neutrophils # (Auto) 13.0 x10^3uL (1.8-7.7) 14.0 x10^3uL (1.8-7.7) Lymphocytes # (Auto) 1.2 x10^3/uL (1.0-4.8) 1.0 x10^3/uL (1.0-4.8) Monocytes # (Auto) 0.7 x10^3/uL (0.0-1.1) 0.6 x10^3/uL (0.0-1.1) Eosinophils # (Auto) 0.3 x10^3/uL (0.0-0.7) 0.0 x10^3/uL (0.0-0.7) Basophils # (Auto) 0.1 x10^3/uL (0.0-0.2) 0.0 x10^3/uL (0.0-0.2) Segmented Neutrophils % 77 % (35-66) Lymphocytes % 12 % (24-48) Monocytes % 4 % (0-10) Eosinophils % 4 % (0-5) Basophils % 3 % (0-3) Platelet Estimate Adequate (ADEQUATE) Large Platelets Occ Anisocytosis Slight Microcytosis Slight Sodium Level 137 mmol/L (136-145) 139 mmol/L (136-145) Potassium Level 3.9 mmol/L (3.5-5.1) 4.4 mmol/L (3.5-5.1) Chloride Level 102 mmol/L (98-107) 104 mmol/L (98-107) Carbon Dioxide Level 24 mmol/L (21-32) 25 mmol/L (21-32) Anion Gap 11 (6-14) 10 (6-14) Blood Urea Nitrogen 14 mg/dL (8-26) 16 mg/dL (8-26) Creatinine 1.9 mg/dL (0.7-1.3) 1.7 mg/dL (0.7-1.3) Estimated GFR (Cockcroft-Gault) 35.1 48.3 Glucose Level 204 mg/dL (70-99) 180 mg/dL (70-99) Calcium Level 9.8 mg/dL (8.5-10.1) 8.7 mg/dL (8.5-10.1) Troponin I Quantitative < 0.017 ng/mL (0.000-0.055) NE-Dlc-R-Type Natriuretic Peptide 391 pg/mL (0-124) Procalcitonin 0.24 ng/mL (0.00-0.10) Ethyl Alcohol Level < 10 mg/dL (0-10) Glucose (Fingerstick) 189 mg/dL (70-99) 243 mg/dL (70-99) Test 04/18/18 07:46 04/18/18 11:02 Glucose (Fingerstick) 105 mg/dL (70-99) 165 mg/dL (70-99) Comment Review of Relevant I have reviewed the following items gonzales (where applicable) has been applied. Labs Laboratory Tests Test 04/17/18 13:46 04/17/18 18:16 04/17/18 21:03 04/18/18 05:05 White Blood Count 15.3 x10^3/uL (4.0-11.0) 15.6 x10^3/uL (4.0-11.0) Red Blood Count 3.80 x10^6/uL (4.30-5.70) 3.40 x10^6/uL (4.30-5.70) Hemoglobin 10.0 g/dL (13.0-17.5) 8.7 g/dL (13.0-17.5) Hematocrit 29.6 % (39.0-53.0) 26.7 % (39.0-53.0) Mean Corpuscular Volume 78 fL (79-100) 79 fL (79-100) Mean Corpuscular Hemoglobin 26 pg (25-35) 26 pg (25-35) Mean Corpuscular Hemoglobin Concent 34 g/dL (31-37) 33 g/dL (31-37) Red Cell Distribution Width 17.3 % (11.5-14.5) 17.4 % (11.5-14.5) Platelet Count 440 x10^3/uL (140-400) 364 x10^3/uL (140-400) Neutrophils (%) (Auto) 85 % (31-73) 90 % (31-73) Lymphocytes (%) (Auto) 8 % (24-48) 6 % (24-48) Monocytes (%) (Auto) 5 % (0-9) 4 % (0-9) Eosinophils (%) (Auto) 2 % (0-3) 0 % (0-3) Basophils (%) (Auto) 1 % (0-3) 0 % (0-3) Neutrophils # (Auto) 13.0 x10^3uL (1.8-7.7) 14.0 x10^3uL (1.8-7.7) Lymphocytes # (Auto) 1.2 x10^3/uL (1.0-4.8) 1.0 x10^3/uL (1.0-4.8) Monocytes # (Auto) 0.7 x10^3/uL (0.0-1.1) 0.6 x10^3/uL (0.0-1.1) Eosinophils # (Auto) 0.3 x10^3/uL (0.0-0.7) 0.0 x10^3/uL (0.0-0.7) Basophils # (Auto) 0.1 x10^3/uL (0.0-0.2) 0.0 x10^3/uL (0.0-0.2) Segmented Neutrophils % 77 % (35-66) Lymphocytes % 12 % (24-48) Monocytes % 4 % (0-10) Eosinophils % 4 % (0-5) Basophils % 3 % (0-3) Platelet Estimate Adequate (ADEQUATE) Large Platelets Occ Anisocytosis Slight Microcytosis Slight Sodium Level 137 mmol/L (136-145) 139 mmol/L (136-145) Potassium Level 3.9 mmol/L (3.5-5.1) 4.4 mmol/L (3.5-5.1) Chloride Level 102 mmol/L (98-107) 104 mmol/L (98-107) Carbon Dioxide Level 24 mmol/L (21-32) 25 mmol/L (21-32) Anion Gap 11 (6-14) 10 (6-14) Blood Urea Nitrogen 14 mg/dL (8-26) 16 mg/dL (8-26) Creatinine 1.9 mg/dL (0.7-1.3) 1.7 mg/dL (0.7-1.3) Estimated GFR (Cockcroft-Gault) 35.1 48.3 Glucose Level 204 mg/dL (70-99) 180 mg/dL (70-99) Calcium Level 9.8 mg/dL (8.5-10.1) 8.7 mg/dL (8.5-10.1) Troponin I Quantitative < 0.017 ng/mL (0.000-0.055) JO-Usg-S-Type Natriuretic Peptide 391 pg/mL (0-124) Procalcitonin 0.24 ng/mL (0.00-0.10) Ethyl Alcohol Level < 10 mg/dL (0-10) Glucose (Fingerstick) 189 mg/dL (70-99) 243 mg/dL (70-99) Test 04/18/18 07:46 04/18/18 11:02 Glucose (Fingerstick) 105 mg/dL (70-99) 165 mg/dL (70-99) Laboratory Tests Test 04/17/18 13:46 04/17/18 18:16 04/17/18 21:03 04/18/18 05:05 White Blood Count 15.3 x10^3/uL (4.0-11.0) 15.6 x10^3/uL (4.0-11.0) Red Blood Count 3.80 x10^6/uL (4.30-5.70) 3.40 x10^6/uL (4.30-5.70) Hemoglobin 10.0 g/dL (13.0-17.5) 8.7 g/dL (13.0-17.5) Hematocrit 29.6 % (39.0-53.0) 26.7 % (39.0-53.0) Mean Corpuscular Volume 78 fL (79-100) 79 fL (79-100) Mean Corpuscular Hemoglobin 26 pg (25-35) 26 pg (25-35) Mean Corpuscular Hemoglobin Concent 34 g/dL (31-37) 33 g/dL (31-37) Red Cell Distribution Width 17.3 % (11.5-14.5) 17.4 % (11.5-14.5) Platelet Count 440 x10^3/uL (140-400) 364 x10^3/uL (140-400) Neutrophils (%) (Auto) 85 % (31-73) 90 % (31-73) Lymphocytes (%) (Auto) 8 % (24-48) 6 % (24-48) Monocytes (%) (Auto) 5 % (0-9) 4 % (0-9) Eosinophils (%) (Auto) 2 % (0-3) 0 % (0-3) Basophils (%) (Auto) 1 % (0-3) 0 % (0-3) Neutrophils # (Auto) 13.0 x10^3uL (1.8-7.7) 14.0 x10^3uL (1.8-7.7) Lymphocytes # (Auto) 1.2 x10^3/uL (1.0-4.8) 1.0 x10^3/uL (1.0-4.8) Monocytes # (Auto) 0.7 x10^3/uL (0.0-1.1) 0.6 x10^3/uL (0.0-1.1) Eosinophils # (Auto) 0.3 x10^3/uL (0.0-0.7) 0.0 x10^3/uL (0.0-0.7) Basophils # (Auto) 0.1 x10^3/uL (0.0-0.2) 0.0 x10^3/uL (0.0-0.2) Segmented Neutrophils % 77 % (35-66) Lymphocytes % 12 % (24-48) Monocytes % 4 % (0-10) Eosinophils % 4 % (0-5) Basophils % 3 % (0-3) Platelet Estimate Adequate (ADEQUATE) Large Platelets Occ Anisocytosis Slight Microcytosis Slight Sodium Level 137 mmol/L (136-145) 139 mmol/L (136-145) Potassium Level 3.9 mmol/L (3.5-5.1) 4.4 mmol/L (3.5-5.1) Chloride Level 102 mmol/L (98-107) 104 mmol/L (98-107) Carbon Dioxide Level 24 mmol/L (21-32) 25 mmol/L (21-32) Anion Gap 11 (6-14) 10 (6-14) Blood Urea Nitrogen 14 mg/dL (8-26) 16 mg/dL (8-26) Creatinine 1.9 mg/dL (0.7-1.3) 1.7 mg/dL (0.7-1.3) Estimated GFR (Cockcroft-Gault) 35.1 48.3 Glucose Level 204 mg/dL (70-99) 180 mg/dL (70-99) Calcium Level 9.8 mg/dL (8.5-10.1) 8.7 mg/dL (8.5-10.1) Troponin I Quantitative < 0.017 ng/mL (0.000-0.055) JD-Bps-C-Type Natriuretic Peptide 391 pg/mL (0-124) Procalcitonin 0.24 ng/mL (0.00-0.10) Ethyl Alcohol Level < 10 mg/dL (0-10) Glucose (Fingerstick) 189 mg/dL (70-99) 243 mg/dL (70-99) Test 04/18/18 07:46 04/18/18 11:02 Glucose (Fingerstick) 105 mg/dL (70-99) 165 mg/dL (70-99) Medications Current Medications Albuterol Sulfate (Ventolin Neb Soln) 10 mg 1X ONCE CONT NEB Last administered on 04/17/18at 13:59; Start 04/17/18 at 14:00; Stop 04/17/18 at 14 :01; Status DC Ipratropium [place] (Atrovent) 0.5 mg 1X ONCE NEB Last administered on at 13:59; Start 04/17/18 at 14:00; Stop 04/17/18 at 14:01; Status DC Methylprednisolone Sodium Succinate (SOLU-Medrol 125MG VIAL) 125 mg 1X ONCE IV Last administered on 04/17/18at 14:05; Start 04/17/18 at 14:00; Stop at 14:01; Status DC Ibuprofen (Motrin) 800 mg 1X ONCE PO ; Start 04/17/18 at 14:45; Stop at 14:46; Status UNV Acetaminophen/ Hydrocodone Bitart (Lortab 5/325) 2 tab 1X ONCE PO ; Start at 14:45; Stop 04/17/18 at 14:46; Status UNV Sodium Chloride 1,000 ml @ 1,000 mls/hr 1X ONCE IV Last administered on 04/17at 15:26; Start 04/17/18 at 15:15; Stop 04/17/18 at 16:14; Status DC Magnesium Sulfate 50 ml @ 25 mls/hr 1X ONCE IV Last administered on at 15:26; Start 04/17/18 at 15:15; Stop 04/17/18 at 17:14; Status DC Albuterol Sulfate (Ventolin Neb Soln) 10 mg 1X ONCE CONT NEB Last administered on 04/17/18at 15:33; Start 04/17/18 at 15:30; Stop 04/17/18 at 15 :31; Status DC Azithromycin 250 ml @ 250 mls/hr 1X ONCE IV Last administered on 04/17/18at 17:25; Start 04/17/18 at 16:15; Stop 04/17/18 at 17:14; Status DC Ceftriaxone Sodium 50 ml @ 100 mls/hr 1X ONCE IV Last administered on at 16:37; Start 04/17/18 at 16:15; Stop 04/17/18 at 16:44; Status DC Ondansetron HCl (Zofran) 4 mg PRN Q8HRS PRN IV NAUSEA/VOMITING; Start at 17:00; Stop 04/17/18 at 20:28; Status DC Acetaminophen (Tylenol) 650 mg PRN Q4HRS PRN PO FEVER; Start 04/17/18 at 17:00 ; Stop 04/18/18 at 09:51; Status DC Albuterol/ Ipratropium (Duoneb) 3 ml RTQID NEB Last administered on 04/18/18at 07:46; Start 04/17/18 at 20:00; Stop 04/18/18 at 09:52; Status DC Insulin Human Lispro (HumaLOG) 0-5 UNITS TIDWMEALHC SQ ; Start 04/17/18 at 21: 00 Dextrose (Dextrose 50%-Water Syringe) 12.5 gm PRN Q15MIN PRN IV SEE COMMENTS; Start 04/17/18 at 20:00 Guaifenesin (Robitussin Dm) 10 ml PRN Q4HRS PRN PO COUGH Last administered on 04/18/18at 00:50; Start 04/17/18 at 20:00 Ringer's Solution 1,000 ml @ 100 mls/hr Q10H IV Last administered on at 05:51; Start 04/17/18 at 21:00 Ondansetron HCl (Zofran) 4 mg PRN Q6HRS PRN IV NAUSEA/VOMITING; Start at 20:15; Stop 04/18/18 at 09:51; Status DC Oxycodone HCl (Roxicodone) 5 mg PRN Q3HRS PRN PO BREAKTHROUGH PAIN; Start at 20:15 Senna/Docusate Sodium (Senna Plus) 1 tab BID PO ; Start 04/17/18 at 21:00 Heparin Sodium (Porcine) (Heparin Sodium) 5,000 unit Q12HR SQ Last administered on 04/18/18at 08:23; Start 04/17/18 at 21:00 Acetaminophen (Tylenol) 650 mg PRN Q6HRS PRN PO FEVER; Start 04/18/18 at 10:00 Ondansetron HCl (Zofran) 4 mg PRN Q6HRS PRN IV NAUSEA/VOMITING; Start at 10:00 Morphine Sulfate (Morphine Sulfate) 2 mg PRN Q2HR PRN IV MODERATE TO SEVERE PAIN; Start 04/18/18 at 10:00 Tramadol HCl (Ultram) 50 mg PRN Q6HRS PRN PO MILD TO MODERATE PAIN; Start at 10:00 Docusate Sodium (Colace) 100 mg PRN DAILY PRN PO CONSTIPATION; Start 04/18/18 at 10:00 Albuterol/ Ipratropium (Duoneb) 3 ml RTQID NEB Last administered on 04/18/18at 11:49; Start 04/18/18 at 12:00 Albuterol Sulfate (Ventolin Neb Soln) 2.5 mg PRN Q2HR PRN NEB SHORTNESS OF BREATH; Start 04/18/18 at 10:00 Guaifenesin (Mucinex) 600 mg BID PO Last administered on 04/18/18at 10:37; Start 04/18/18 at 10:00 Methylprednisolone Sodium Succinate (SOLU-Medrol 40MG VIAL) 40 mg Q8HRS IV ; Start 04/18/18 at 14:00 Famotidine (Pepcid) 20 mg QHS PO ; Start 04/18/18 at 21:00 Levofloxacin/ Dextrose 150 ml @ 100 mls/hr 1X ONCE IV Last administered on at 10:37; Start 04/18/18 at 10:00; Stop 04/18/18 at 11:29; Status DC Levofloxacin/ Dextrose (Levaquin Per Pharmacy) 1 each PRN DAILY PRN MC SEE COMMENTS; Start 04/18/18 at 10:00 Levofloxacin/ Dextrose 50 ml @ 50 mls/hr Q24H IV ; Start 04/19/18 at 11:00 Active Scripts Active Reported Duoneb 0.5-3(2.5) Mg/3 Ml (Albuterol/Ipratropium) 3 Ml Ampul.neb 3 Ml INH BID Lisinopril 10 Mg Tablet 10 Mg PO DAILY Metformin Hcl 500 Mg Tablet 500 Mg PO DAILY [asthma meds] [htn meds] [diabetes type 2 meds] Vitals/I & O Vital Sign - Last 24 Hours 04/17/18 04/17/18 04/17/18 04/17/18 13:39 14:00 15:38 18:24 Temp 97.8 97.8 Pulse 107 Resp 26 B/P (MAP) 129/79 (96) Pulse Ox 95 93 100 O2 Delivery Room Air Room Air Room Air Room Air 04/17/18 04/17/18 04/17/18 04/17/18 19:00 19:25 19:52 23:00 Temp 97.5 96.1 97.5 96.1 Pulse 86 91 Resp 16 16 B/P (MAP) 114/78 (90) 137/80 (99) Pulse Ox 92 97 96 O2 Delivery Room Air Room Air Room Air Room Air 04/18/18 04/18/18 04/18/18 04/18/18 03:00 07:00 07:45 07:46 Temp 97.6 98.8 97.6 98.8 Pulse 91 81 Resp 16 18 B/P (MAP) 141/81 (101) 154/71 (98) Pulse Ox 95 95 97 O2 Delivery Room Air Room Air Room Air Room Air 04/18/18 04/18/18 11:00 11:49 Temp 98.1 98.1 Pulse 78 Resp 18 B/P (MAP) 146/70 (95) Pulse Ox 91 O2 Delivery Room Air Room Air Intake and Output 04/17/18 04/17/18 04/18/18 15:00 23:00 07:00 Intake Total 1100 ml 1080 ml Balance 1100 ml 1080 ml CATHIE LYN MD Apr 18, 2018 12:13
--- NOTE | 2018-04-18 12:31 | PDOC2 ---
CONSULT Date of Consult Date of Consult DATE: 04/18/18 TIME: 12:30 Reason for Consult Reason for Consult: Elevated creatinine. Referring Physician Referring Physician: Dr. Loo Identification/Chief Complaint Chief Complaint Unable to breathe Source Source: Chart review, Patient History of Present Illness Reason for Visit: Matt is a 72-year-old -[place] gentleman who was a smoker until about a year ago. He has been seen as an outpatient by his primary care provider but was not aware of known renal insufficiency per se. He presented to the ER with complaints of shortness of breath cough labs were production as well as subjective fevers. He was noted to have a creatinine of 1.9 at presentation that is improved to 1.7 today with IV fluids. There were asked to see him for renal insufficiency. He is breathing is slightly better with nebulizer treatments. He currently using oxygen. 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 His diabetes has not complicated by retinopathy that he is aware of. He claims his eyesight is good enough that he still goes to the shooting range. He is noted to be somewhat anemic. He denies GI blood losses. He denies difficulty urinating. He does take pain medications from time to time but denies significant NSAID use per se. Past Medical History Pulmonary: Asthma, COPD Rheumatologic: Other (occasional joint pain) ENT: No pertinent hx Renal/: Benign prostatic enlarg., Other (no formal diagnosis of chronic kidney disease) Endocrine: Diabetes Past Surgical History Past Surgical History: Cholecystectomy, Other (TURP) Family History Family History: Diabetes, Other (patient denies knowledge of kidney problems in the family) Social History Social History: Parent (Diabetes in mother and father) Quit (2 PPD smoker, quit 2 years ago) ALCOHOL: none Drugs: None Lives: with Family Current Medications Current Medications Current Medications Albuterol Sulfate (Ventolin Neb Soln) 10 mg 1X ONCE CONT NEB Last administered on 04/17/18at 13:59; Start 04/17/18 at 14:00; Stop 04/17/18 at 14 :01; Status DC Ipratropium [place] (Atrovent) 0.5 mg 1X ONCE NEB Last administered on at 13:59; Start 04/17/18 at 14:00; Stop 04/17/18 at 14:01; Status DC Methylprednisolone Sodium Succinate (SOLU-Medrol 125MG VIAL) 125 mg 1X ONCE IV Last administered on 04/17/18at 14:05; Start 04/17/18 at 14:00; Stop at 14:01; Status DC Ibuprofen (Motrin) 800 mg 1X ONCE PO ; Start 04/17/18 at 14:45; Stop at 14:46; Status UNV Acetaminophen/ Hydrocodone Bitart (Lortab 5/325) 2 tab 1X ONCE PO ; Start at 14:45; Stop 04/17/18 at 14:46; Status UNV Sodium Chloride 1,000 ml @ 1,000 mls/hr 1X ONCE IV Last administered on 04/17at 15:26; Start 04/17/18 at 15:15; Stop 04/17/18 at 16:14; Status DC Magnesium Sulfate 50 ml @ 25 mls/hr 1X ONCE IV Last administered on at 15:26; Start 04/17/18 at 15:15; Stop 04/17/18 at 17:14; Status DC Albuterol Sulfate (Ventolin Neb Soln) 10 mg 1X ONCE CONT NEB Last administered on 04/17/18at 15:33; Start 04/17/18 at 15:30; Stop 04/17/18 at 15 :31; Status DC Azithromycin 250 ml @ 250 mls/hr 1X ONCE IV Last administered on 04/17/18at 17:25; Start 04/17/18 at 16:15; Stop 04/17/18 at 17:14; Status DC Ceftriaxone Sodium 50 ml @ 100 mls/hr 1X ONCE IV Last administered on at 16:37; Start 04/17/18 at 16:15; Stop 04/17/18 at 16:44; Status DC Ondansetron HCl (Zofran) 4 mg PRN Q8HRS PRN IV NAUSEA/VOMITING; Start at 17:00; Stop 04/17/18 at 20:28; Status DC Acetaminophen (Tylenol) 650 mg PRN Q4HRS PRN PO FEVER; Start 04/17/18 at 17:00 ; Stop 04/18/18 at 09:51; Status DC Albuterol/ Ipratropium (Duoneb) 3 ml RTQID NEB Last administered on 04/18/18at 07:46; Start 04/17/18 at 20:00; Stop 04/18/18 at 09:52; Status DC Insulin Human Lispro (HumaLOG) 0-5 UNITS TIDWMEALHC SQ ; Start 04/17/18 at 21: 00 Dextrose (Dextrose 50%-Water Syringe) 12.5 gm PRN Q15MIN PRN IV SEE COMMENTS; Start 04/17/18 at 20:00 Guaifenesin (Robitussin Dm) 10 ml PRN Q4HRS PRN PO COUGH Last administered on 04/18/18at 00:50; Start 04/17/18 at 20:00 Ringer's Solution 1,000 ml @ 100 mls/hr Q10H IV Last administered on at 05:51; Start 04/17/18 at 21:00 Ondansetron HCl (Zofran) 4 mg PRN Q6HRS PRN IV NAUSEA/VOMITING; Start at 20:15; Stop 04/18/18 at 09:51; Status DC Oxycodone HCl (Roxicodone) 5 mg PRN Q3HRS PRN PO BREAKTHROUGH PAIN; Start at 20:15 Senna/Docusate Sodium (Senna Plus) 1 tab BID PO ; Start 04/17/18 at 21:00 Heparin Sodium (Porcine) (Heparin Sodium) 5,000 unit Q12HR SQ Last administered on 04/18/18at 08:23; Start 04/17/18 at 21:00 Acetaminophen (Tylenol) 650 mg PRN Q6HRS PRN PO FEVER; Start 04/18/18 at 10:00 Ondansetron HCl (Zofran) 4 mg PRN Q6HRS PRN IV NAUSEA/VOMITING; Start at 10:00 Morphine Sulfate (Morphine Sulfate) 2 mg PRN Q2HR PRN IV MODERATE TO SEVERE PAIN; Start 04/18/18 at 10:00 Tramadol HCl (Ultram) 50 mg PRN Q6HRS PRN PO MILD TO MODERATE PAIN; Start at 10:00 Docusate Sodium (Colace) 100 mg PRN DAILY PRN PO CONSTIPATION; Start 04/18/18 at 10:00 Albuterol/ Ipratropium (Duoneb) 3 ml RTQID NEB Last administered on 04/18/18at 11:49; Start 04/18/18 at 12:00 Albuterol Sulfate (Ventolin Neb Soln) 2.5 mg PRN Q2HR PRN NEB SHORTNESS OF BREATH; Start 04/18/18 at 10:00 Guaifenesin (Mucinex) 600 mg BID PO Last administered on 04/18/18at 10:37; Start 04/18/18 at 10:00 Methylprednisolone Sodium Succinate (SOLU-Medrol 40MG VIAL) 40 mg Q8HRS IV ; Start 04/18/18 at 14:00 Famotidine (Pepcid) 20 mg QHS PO ; Start 04/18/18 at 21:00 Levofloxacin/ Dextrose 150 ml @ 100 mls/hr 1X ONCE IV Last administered on at 10:37; Start 04/18/18 at 10:00; Stop 04/18/18 at 11:29; Status DC Levofloxacin/ Dextrose (Levaquin Per Pharmacy) 1 each PRN DAILY PRN MC SEE COMMENTS; Start 04/18/18 at 10:00 Levofloxacin/ Dextrose 50 ml @ 50 mls/hr Q24H IV ; Start 04/19/18 at 11:00 Active Scripts Active Reported Duoneb 0.5-3(2.5) Mg/3 Ml (Albuterol/Ipratropium) 3 Ml Ampul.neb 3 Ml INH BID Lisinopril 10 Mg Tablet 10 Mg PO DAILY Metformin Hcl 500 Mg Tablet 500 Mg PO DAILY [asthma meds] [htn meds] [diabetes type 2 meds] Allergies Allergies: Coded Allergies: No Known Drug Allergies (Unverified , 04/17/18) ROS Review of System GEN: lo grd Fevers no Chills EYES: no Visual Complaints ENT: no EN Drainage no Hearing deficiets CVS: no Orthopnea no CP RESP: ++ SOB + MONTIEL with cough phlegm and sputum production. GI: no Nausea no Vomiting : no Dysuria mp Urgency HEME: mp easy bruising noPalp Ly Nodes NEURO no Focal Weakness no recent Sz PSYCH: denies Suicidal Ideation no Depression SKIN: no Rashes ENDO: no Polyuria or Polydipsia no Hot/Cold Intolerance MU SK: no Arthraigia no Myalgia Physical Exam Physical Exam General Appearance: [ ] Awake Alert Oriented x 3 In no Distress Eyes: VIsion Unchanged Conjunctiva Normal, cannot rule out some periorbital edema EN: No EN Drainage Mucous Memb. moist Neck: no JVD no JVP Supple no Thyromegaly CVS: S1 S2 soft Murmur No Gallop No Rub no Edema Resp: no Rales end exp Rhonchi no Acc. Muscle use GI: BAS +ve NO Bruit Non Tender Non Distended : no CVA tenderness; no Suprapubic Tenderness SKIN: no Rashes Breast Exam deferred Mu.Sk: Adequate ROM no Muscle Atrophy Heme: Unable to palpate Obvious LAD no Splenomegaly NEURO: Good Strength and Tone Cranial Nerves II - XII grossly intact Psych: no Depressed no Active hallucination Vital Signs Vital Signs Date Time Temp Pulse Resp B/P (MAP) Pulse Ox O2 Delivery O2 Flow Rate FiO2 04/18/18 11:49 Room Air 04/18/18 11:00 98.1 78 18 146/70 (95) 91 98.1 Assessment & Plan Acute renal failure versus chronic kidney disease. Baseline creatinine is not available in our system.:Current FLuid and E-lyte status does not necessitate emergent need for Dialysis. Some underlying chronic kidney disease on the basis of diabetic hypertensive nephrosclerosis cannot be ruled out. We'll check UA and renal sonogram. Anemia: Check iron profile. as needed. HTN: Current BP meds reviewed. Patient appears to have been on an JOSÉ MIGUEL-i for a prolonged period of Time and hence I believe it should be okay to continue the same. Lung mass is currently being evaluated by Dr. Lutz Discussed Plan of Care and prognosis etc. at length with patient Labs Labs Laboratory Tests Test 04/17/18 13:46 04/17/18 18:16 04/17/18 21:03 04/18/18 05:05 White Blood Count 15.3 x10^3/uL (4.0-11.0) 15.6 x10^3/uL (4.0-11.0) Red Blood Count 3.80 x10^6/uL (4.30-5.70) 3.40 x10^6/uL (4.30-5.70) Hemoglobin 10.0 g/dL (13.0-17.5) 8.7 g/dL (13.0-17.5) Hematocrit 29.6 % (39.0-53.0) 26.7 % (39.0-53.0) Mean Corpuscular Volume 78 fL (79-100) 79 fL (79-100) Mean Corpuscular Hemoglobin 26 pg (25-35) 26 pg (25-35) Mean Corpuscular Hemoglobin Concent 34 g/dL (31-37) 33 g/dL (31-37) Red Cell Distribution Width 17.3 % (11.5-14.5) 17.4 % (11.5-14.5) Platelet Count 440 x10^3/uL (140-400) 364 x10^3/uL (140-400) Neutrophils (%) (Auto) 85 % (31-73) 90 % (31-73) Lymphocytes (%) (Auto) 8 % (24-48) 6 % (24-48) Monocytes (%) (Auto) 5 % (0-9) 4 % (0-9) Eosinophils (%) (Auto) 2 % (0-3) 0 % (0-3) Basophils (%) (Auto) 1 % (0-3) 0 % (0-3) Neutrophils # (Auto) 13.0 x10^3uL (1.8-7.7) 14.0 x10^3uL (1.8-7.7) Lymphocytes # (Auto) 1.2 x10^3/uL (1.0-4.8) 1.0 x10^3/uL (1.0-4.8) Monocytes # (Auto) 0.7 x10^3/uL (0.0-1.1) 0.6 x10^3/uL (0.0-1.1) Eosinophils # (Auto) 0.3 x10^3/uL (0.0-0.7) 0.0 x10^3/uL (0.0-0.7) Basophils # (Auto) 0.1 x10^3/uL (0.0-0.2) 0.0 x10^3/uL (0.0-0.2) Segmented Neutrophils % 77 % (35-66) Lymphocytes % 12 % (24-48) Monocytes % 4 % (0-10) Eosinophils % 4 % (0-5) Basophils % 3 % (0-3) Platelet Estimate Adequate (ADEQUATE) Large Platelets Occ Anisocytosis Slight Microcytosis Slight Sodium Level 137 mmol/L (136-145) 139 mmol/L (136-145) Potassium Level 3.9 mmol/L (3.5-5.1) 4.4 mmol/L (3.5-5.1) Chloride Level 102 mmol/L (98-107) 104 mmol/L (98-107) Carbon Dioxide Level 24 mmol/L (21-32) 25 mmol/L (21-32) Anion Gap 11 (6-14) 10 (6-14) Blood Urea Nitrogen 14 mg/dL (8-26) 16 mg/dL (8-26) Creatinine 1.9 mg/dL (0.7-1.3) 1.7 mg/dL (0.7-1.3) Estimated GFR (Cockcroft-Gault) 35.1 48.3 Glucose Level 204 mg/dL (70-99) 180 mg/dL (70-99) Calcium Level 9.8 mg/dL (8.5-10.1) 8.7 mg/dL (8.5-10.1) Troponin I Quantitative < 0.017 ng/mL (0.000-0.055) ZM-Lsm-Z-Type Natriuretic Peptide 391 pg/mL (0-124) Procalcitonin 0.24 ng/mL (0.00-0.10) Ethyl Alcohol Level < 10 mg/dL (0-10) Glucose (Fingerstick) 189 mg/dL (70-99) 243 mg/dL (70-99) Test 04/18/18 07:46 04/18/18 11:02 Glucose (Fingerstick) 105 mg/dL (70-99) 165 mg/dL (70-99) Laboratory Tests Test 04/17/18 13:46 04/17/18 18:16 04/17/18 21:03 04/18/18 05:05 White Blood Count 15.3 x10^3/uL (4.0-11.0) 15.6 x10^3/uL (4.0-11.0) Red Blood Count 3.80 x10^6/uL (4.30-5.70) 3.40 x10^6/uL (4.30-5.70) Hemoglobin 10.0 g/dL (13.0-17.5) 8.7 g/dL (13.0-17.5) Hematocrit 29.6 % (39.0-53.0) 26.7 % (39.0-53.0) Mean Corpuscular Volume 78 fL (79-100) 79 fL (79-100) Mean Corpuscular Hemoglobin 26 pg (25-35) 26 pg (25-35) Mean Corpuscular Hemoglobin Concent 34 g/dL (31-37) 33 g/dL (31-37) Red Cell Distribution Width 17.3 % (11.5-14.5) 17.4 % (11.5-14.5) Platelet Count 440 x10^3/uL (140-400) 364 x10^3/uL (140-400) Neutrophils (%) (Auto) 85 % (31-73) 90 % (31-73) Lymphocytes (%) (Auto) 8 % (24-48) 6 % (24-48) Monocytes (%) (Auto) 5 % (0-9) 4 % (0-9) Eosinophils (%) (Auto) 2 % (0-3) 0 % (0-3) Basophils (%) (Auto) 1 % (0-3) 0 % (0-3) Neutrophils # (Auto) 13.0 x10^3uL (1.8-7.7) 14.0 x10^3uL (1.8-7.7) Lymphocytes # (Auto) 1.2 x10^3/uL (1.0-4.8) 1.0 x10^3/uL (1.0-4.8) Monocytes # (Auto) 0.7 x10^3/uL (0.0-1.1) 0.6 x10^3/uL (0.0-1.1) Eosinophils # (Auto) 0.3 x10^3/uL (0.0-0.7) 0.0 x10^3/uL (0.0-0.7) Basophils # (Auto) 0.1 x10^3/uL (0.0-0.2) 0.0 x10^3/uL (0.0-0.2) Segmented Neutrophils % 77 % (35-66) Lymphocytes % 12 % (24-48) Monocytes % 4 % (0-10) Eosinophils % 4 % (0-5) Basophils % 3 % (0-3) Platelet Estimate Adequate (ADEQUATE) Large Platelets Occ Anisocytosis Slight Microcytosis Slight Sodium Level 137 mmol/L (136-145) 139 mmol/L (136-145) Potassium Level 3.9 mmol/L (3.5-5.1) 4.4 mmol/L (3.5-5.1) Chloride Level 102 mmol/L (98-107) 104 mmol/L (98-107) Carbon Dioxide Level 24 mmol/L (21-32) 25 mmol/L (21-32) Anion Gap 11 (6-14) 10 (6-14) Blood Urea Nitrogen 14 mg/dL (8-26) 16 mg/dL (8-26) Creatinine 1.9 mg/dL (0.7-1.3) 1.7 mg/dL (0.7-1.3) Estimated GFR (Cockcroft-Gault) 35.1 48.3 Glucose Level 204 mg/dL (70-99) 180 mg/dL (70-99) Calcium Level 9.8 mg/dL (8.5-10.1) 8.7 mg/dL (8.5-10.1) Troponin I Quantitative < 0.017 ng/mL (0.000-0.055) FY-Cra-R-Type Natriuretic Peptide 391 pg/mL (0-124) Procalcitonin 0.24 ng/mL (0.00-0.10) Ethyl Alcohol Level < 10 mg/dL (0-10) Glucose (Fingerstick) 189 mg/dL (70-99) 243 mg/dL (70-99) Test 04/18/18 07:46 04/18/18 11:02 Glucose (Fingerstick) 105 mg/dL (70-99) 165 mg/dL (70-99) Review All relevant outside records, renal labs, imaging studies, telemetry/EKG's were reviewed. Images Images Images through the upper abdomen show a left renal cyst. There is mild thickening of the left adrenal gland without evidence of a discrete nodule. IMPRESSION: There is a left lower lobe abnormality suspicious for malignancy. Other areas of opacity in the lungs may all be infectious/inflammatory, although multifocal malignancy or metastatic disease is possibl REGINALDO KRAUS MD Apr 18, 2018 12:31
--- NOTE | 2018-04-18 13:07 | RAD ---
Renal ultrasound 04/18/2018. Reason for exam: Acute renal failure and history of chronic kidney disease. FINDINGS: The kidneys have normal cortical thickness and echogenicity for age. No solid mass or obstruction is seen. The right kidney measures 10.2 cm in length and the left kidney measures 10.5 cm. Small cysts are seen bilaterally. The larger is in the upper left kidney and measures 3.9 cm. Scanning at the bladder shows no abnormality. IMPRESSION: No evidence of obstruction. Electronically signed by: Xavier Green Jr., MD (04/18/2018 1:03 PM) [facility] [place]
[2018-04-18 13:18] LABS: PROTHROMBIN TIME PATIENT 13.9 SEC (11.7-14.0)
[2018-04-18] MEDS: methylPREDNISolone SOD SUCC PF 40 MG/ML VIAL. IV SCH ×2 (13:27→21:42)
[2018-04-18 15:00] VITALS: BP 126/52
[2018-04-18 17:27] LABS: BILIRUBIN,URINE NEGATIVE (NEG); CLARITY,URINE CLEAR; COLOR,URINE YELLOW; NITRITE,URINE NEGATIVE (NEG); PH,URINE 5.5; PROTEIN,URINE NEGATIVE (NEG-TRACE)
[2018-04-18 17:43] LABS: BACTERIA,URINE 0 /HPF (0-FEW); RBC,URINE 0 /HPF (0-2); SQUAMOUS EPITHELIAL CELL,UR OCC /LPF
[2018-04-18 19:00] VITALS: BP 123/69
[2018-04-18] MEDS ORDERED: FAMOTIDINE 20 MG TABLET. PO SCH (21:00)
[2018-04-18] MEDS: LACTOBACILLUS RHAMNOSUS GG 1 CAPSULE. PO SCH (21:41)
[2018-04-18 23:00] VITALS: BP 152/73
[2018-04-19 01:04] LABS: FECAL OB PT NEGATIVE (NEG)
[2018-04-19 03:00] VITALS: BP 135/82
[2018-04-19] MEDS: IV RINGERS,LACTATED 1000ML 1,000 ML IV SCH (03:00)
[2018-04-19 04:39] LABS: BASO % 0 % (0-3); EOS % 0 % (0-3); HEMATOCRIT 29.2 % (39.0-53.0); HEMOGLOBIN 9.7 g/dL (13.0-17.5); LYMPH # 0.6 x10^3/uL (1.0-4.8); LYMPH % 6 % (24-48); MEAN CORPUSCULAR HEMOGLOBIN 26 pg (25-35); MEAN CORPUSCULAR HGB CONC 33 g/dL (31-37); MEAN CORPUSCULAR VOLUME 79 fL (79-100); MONO # 0.2 x10^3/uL (0.0-1.1); MONO % 2 % (0-9); NEUT # 8.9 x10^3uL (1.8-7.7); NEUT % 92 % (31-73); PLATELET COUNT 348 x10^3/uL (140-400); RED BLOOD COUNT 3.69 x10^6/uL (4.30-5.70); RED CELL DISTRIBUTION WIDTH 17.4 % (11.5-14.5); WHITE BLOOD COUNT 9.7 x10^3/uL (4.0-11.0)
[2018-04-19 05:15] LABS: CALCIUM 9.1 mg/dL (8.5-10.1); CREATININE 1.8 mg/dL (0.7-1.3); GFR 45.2; POTASSIUM 5.4 mmol/L (3.5-5.1)
[2018-04-19] MEDS: methylPREDNISolone SOD SUCC PF 40 MG/ML VIAL. IV SCH ×2 (05:42→13:41)
[2018-04-19 07:00] VITALS: BP 170/87
[2018-04-19] MEDS ORDERED: IV RINGERS,LACTATED 1000ML 1,000 ML IV SCH ×2 (07:26→07:44)
[2018-04-19] MEDS: IPRATRPIUM/ALBUTEROL 0.5/2.5MG 3 ML NEBU. NEB SCH ×3 (07:41→15:56)
[2018-04-19] MEDS ORDERED: LIDOCAINE 1% PF 2 ML VIAL. ID PRN (07:45)
[2018-04-19] MEDS ORDERED: MIDAZOLAM HCL/PF 2 MG/2 ML VIAL. IV PRN (07:45)
[2018-04-19] MEDS ORDERED: fentaNYL PF VIAL 100 MCG/2 ML VIAL IV PRN ×2 (07:45)
[2018-04-19] MEDS: INSULIN LISPRO 300 UNITS/3 ML INSULN.PEN. SQ SCH ×2 (08:00→13:00)
--- NOTE | 2018-04-19 08:42 | PDOC ---
PROGRESS NOTES Chief Complaint Chief Complaint Acute COPD exacerbation Right middle lobe pneumonia - vs Lung Mass ARF vs. CKD3 DM2 - BPH - prevous smoker microcytic anemia History of Present Illness History of Present Illness Frustrated he can't get the cough out No fevers His last admission here was 9 years ago hence no other records on [facility] file For bronchoscopy later ROS: no fever, chills chest pain PLAN: Bronch later Make Robitussin scheduled instead of when necessary Vitals Vitals Vital Signs Date Time Temp Pulse Resp B/P (MAP) Pulse Ox O2 Delivery O2 Flow Rate FiO2 04/19/18 07:41 94 Room Air 04/19/18 07:00 98.6 80 18 170/87 (114) 98.6 Physical Exam General: Alert, Oriented X3, Cooperative, No acute distress Heart: Regular rate, Normal S1, Normal S2 Lungs: Wheezing (bl moderate) Abdomen: Normal bowel sounds, Soft, No tenderness, No hepatosplenomegaly, No masses Extremities: No clubbing, No cyanosis, No edema, Normal pulses, No tenderness/ swelling Skin: No rashes, No breakdown, No significant lesion Labs LABS Laboratory Tests Test 04/18/18 11:02 04/18/18 12:30 04/18/18 16:38 04/18/18 17:00 Glucose (Fingerstick) 165 mg/dL (70-99) 173 mg/dL (70-99) Reticulocyte Count (auto) 0.9 % (0.5-2.5) Prothrombin Time 13.9 SEC (11.7-14.0) Prothromb Time International Ratio 1.1 (0.8-1.1) Iron Level 32 ug/dL (65-175) Total Iron Binding Capacity 150 ug/dL (250-450) Iron Saturation 21 % (15-34) Urine Collection Type Unknown Urine Color Yellow Urine Clarity Clear Urine pH 5.5 Urine Specific [place] 1.015 Urine Protein Negative mg/dL (NEG-TRACE) Urine Glucose (UA) Negative mg/dL (NEG) Urine Ketones (Stick) Negative mg/dL (NEG) Urine Blood Negative (NEG) Urine Nitrite Negative (NEG) Urine Bilirubin Negative (NEG) Urine Urobilinogen Dipstick 1.0 mg/dL (0.2 mg/dL) Urine Leukocyte Esterase Negative (NEG) Urine RBC 0 /HPF (0-2) Urine WBC 1-4 /HPF (0-4) Urine Squamous Epithelial Cells Occ /LPF Urine Bacteria 0 /HPF (0-FEW) Test 04/18/18 21:17 04/19/18 00:00 04/19/18 04:25 04/19/18 07:56 Glucose (Fingerstick) 293 mg/dL (70-99) 155 mg/dL (70-99) Stool Occult Blood Negative (NEG) White Blood Count 9.7 x10^3/uL (4.0-11.0) Red Blood Count 3.69 x10^6/uL (4.30-5.70) Hemoglobin 9.7 g/dL (13.0-17.5) Hematocrit 29.2 % (39.0-53.0) Mean Corpuscular Volume 79 fL (79-100) Mean Corpuscular Hemoglobin 26 pg (25-35) Mean Corpuscular Hemoglobin Concent 33 g/dL (31-37) Red Cell Distribution Width 17.4 % (11.5-14.5) Platelet Count 348 x10^3/uL (140-400) Neutrophils (%) (Auto) 92 % (31-73) Lymphocytes (%) (Auto) 6 % (24-48) Monocytes (%) (Auto) 2 % (0-9) Eosinophils (%) (Auto) 0 % (0-3) Basophils (%) (Auto) 0 % (0-3) Neutrophils # (Auto) 8.9 x10^3uL (1.8-7.7) Lymphocytes # (Auto) 0.6 x10^3/uL (1.0-4.8) Monocytes # (Auto) 0.2 x10^3/uL (0.0-1.1) Eosinophils # (Auto) 0.0 x10^3/uL (0.0-0.7) Basophils # (Auto) 0.0 x10^3/uL (0.0-0.2) Sodium Level 138 mmol/L (136-145) Potassium Level 5.4 mmol/L (3.5-5.1) Chloride Level 104 mmol/L (98-107) Carbon Dioxide Level 27 mmol/L (21-32) Anion Gap 7 (6-14) Blood Urea Nitrogen 18 mg/dL (8-26) Creatinine 1.8 mg/dL (0.7-1.3) Estimated GFR (Cockcroft-Gault) 45.2 Glucose Level 194 mg/dL (70-99) Calcium Level 9.1 mg/dL (8.5-10.1) Iron Level 59 ug/dL (65-175) Total Iron Binding Capacity 180 ug/dL (250-450) Iron Saturation 33 % (15-34) Ferritin 182 ng/mL (26-388) Comment Review of Relevant I have reviewed the following items gonzales (where applicable) has been applied. Labs Laboratory Tests Test 04/17/18 13:46 04/17/18 18:16 04/17/18 21:03 04/18/18 05:05 White Blood Count 15.3 x10^3/uL (4.0-11.0) 15.6 x10^3/uL (4.0-11.0) Red Blood Count 3.80 x10^6/uL (4.30-5.70) 3.40 x10^6/uL (4.30-5.70) Hemoglobin 10.0 g/dL (13.0-17.5) 8.7 g/dL (13.0-17.5) Hematocrit 29.6 % (39.0-53.0) 26.7 % (39.0-53.0) Mean Corpuscular Volume 78 fL (79-100) 79 fL (79-100) Mean Corpuscular Hemoglobin 26 pg (25-35) 26 pg (25-35) Mean Corpuscular Hemoglobin Concent 34 g/dL (31-37) 33 g/dL (31-37) Red Cell Distribution Width 17.3 % (11.5-14.5) 17.4 % (11.5-14.5) Platelet Count 440 x10^3/uL (140-400) 364 x10^3/uL (140-400) Neutrophils (%) (Auto) 85 % (31-73) 90 % (31-73) Lymphocytes (%) (Auto) 8 % (24-48) 6 % (24-48) Monocytes (%) (Auto) 5 % (0-9) 4 % (0-9) Eosinophils (%) (Auto) 2 % (0-3) 0 % (0-3) Basophils (%) (Auto) 1 % (0-3) 0 % (0-3) Neutrophils # (Auto) 13.0 x10^3uL (1.8-7.7) 14.0 x10^3uL (1.8-7.7) Lymphocytes # (Auto) 1.2 x10^3/uL (1.0-4.8) 1.0 x10^3/uL (1.0-4.8) Monocytes # (Auto) 0.7 x10^3/uL (0.0-1.1) 0.6 x10^3/uL (0.0-1.1) Eosinophils # (Auto) 0.3 x10^3/uL (0.0-0.7) 0.0 x10^3/uL (0.0-0.7) Basophils # (Auto) 0.1 x10^3/uL (0.0-0.2) 0.0 x10^3/uL (0.0-0.2) Segmented Neutrophils % 77 % (35-66) Lymphocytes % 12 % (24-48) Monocytes % 4 % (0-10) Eosinophils % 4 % (0-5) Basophils % 3 % (0-3) Platelet Estimate Adequate (ADEQUATE) Large Platelets Occ Anisocytosis Slight Microcytosis Slight Sodium Level 137 mmol/L (136-145) 139 mmol/L (136-145) Potassium Level 3.9 mmol/L (3.5-5.1) 4.4 mmol/L (3.5-5.1) Chloride Level 102 mmol/L (98-107) 104 mmol/L (98-107) Carbon Dioxide Level 24 mmol/L (21-32) 25 mmol/L (21-32) Anion Gap 11 (6-14) 10 (6-14) Blood Urea Nitrogen 14 mg/dL (8-26) 16 mg/dL (8-26) Creatinine 1.9 mg/dL (0.7-1.3) 1.7 mg/dL (0.7-1.3) Estimated GFR (Cockcroft-Gault) 35.1 48.3 Glucose Level 204 mg/dL (70-99) 180 mg/dL (70-99) Calcium Level 9.8 mg/dL (8.5-10.1) 8.7 mg/dL (8.5-10.1) Troponin I Quantitative < 0.017 ng/mL (0.000-0.055) VO-Ocp-Y-Type Natriuretic Peptide 391 pg/mL (0-124) Procalcitonin 0.24 ng/mL (0.00-0.10) Ethyl Alcohol Level < 10 mg/dL (0-10) Glucose (Fingerstick) 189 mg/dL (70-99) 243 mg/dL (70-99) Ferritin 202 ng/mL (26-388) Test 04/18/18 07:46 04/18/18 11:02 04/18/18 12:30 04/18/18 16:38 Glucose (Fingerstick) 105 mg/dL (70-99) 165 mg/dL (70-99) 173 mg/dL (70-99) Reticulocyte Count (auto) 0.9 % (0.5-2.5) Prothrombin Time 13.9 SEC (11.7-14.0) Prothromb Time International Ratio 1.1 (0.8-1.1) Iron Level 32 ug/dL (65-175) Total Iron Binding Capacity 150 ug/dL (250-450) Iron Saturation 21 % (15-34) Test 04/18/18 17:00 04/18/18 21:17 04/19/18 00:00 04/19/18 04:25 Urine Collection Type Unknown Urine Color Yellow Urine Clarity Clear Urine pH 5.5 Urine Specific [place] 1.015 Urine Protein Negative mg/dL (NEG-TRACE) Urine Glucose (UA) Negative mg/dL (NEG) Urine Ketones (Stick) Negative mg/dL (NEG) Urine Blood Negative (NEG) Urine Nitrite Negative (NEG) Urine Bilirubin Negative (NEG) Urine Urobilinogen Dipstick 1.0 mg/dL (0.2 mg/dL) Urine Leukocyte Esterase Negative (NEG) Urine RBC 0 /HPF (0-2) Urine WBC 1-4 /HPF (0-4) Urine Squamous Epithelial Cells Occ /LPF Urine Bacteria 0 /HPF (0-FEW) Glucose (Fingerstick) 293 mg/dL (70-99) Stool Occult Blood Negative (NEG) White Blood Count 9.7 x10^3/uL (4.0-11.0) Red Blood Count 3.69 x10^6/uL (4.30-5.70) Hemoglobin 9.7 g/dL (13.0-17.5) Hematocrit 29.2 % (39.0-53.0) Mean Corpuscular Volume 79 fL (79-100) Mean Corpuscular Hemoglobin 26 pg (25-35) Mean Corpuscular Hemoglobin Concent 33 g/dL (31-37) Red Cell Distribution Width 17.4 % (11.5-14.5) Platelet Count 348 x10^3/uL (140-400) Neutrophils (%) (Auto) 92 % (31-73) Lymphocytes (%) (Auto) 6 % (24-48) Monocytes (%) (Auto) 2 % (0-9) Eosinophils (%) (Auto) 0 % (0-3) Basophils (%) (Auto) 0 % (0-3) Neutrophils # (Auto) 8.9 x10^3uL (1.8-7.7) Lymphocytes # (Auto) 0.6 x10^3/uL (1.0-4.8) Monocytes # (Auto) 0.2 x10^3/uL (0.0-1.1) Eosinophils # (Auto) 0.0 x10^3/uL (0.0-0.7) Basophils # (Auto) 0.0 x10^3/uL (0.0-0.2) Sodium Level 138 mmol/L (136-145) Potassium Level 5.4 mmol/L (3.5-5.1) Chloride Level 104 mmol/L (98-107) Carbon Dioxide Level 27 mmol/L (21-32) Anion Gap 7 (6-14) Blood Urea Nitrogen 18 mg/dL (8-26) Creatinine 1.8 mg/dL (0.7-1.3) Estimated GFR (Cockcroft-Gault) 45.2 Glucose Level 194 mg/dL (70-99) Calcium Level 9.1 mg/dL (8.5-10.1) Iron Level 59 ug/dL (65-175) Total Iron Binding Capacity 180 ug/dL (250-450) Iron Saturation 33 % (15-34) Ferritin 182 ng/mL (26-388) Test 04/19/18 07:56 Glucose (Fingerstick) 155 mg/dL (70-99) Laboratory Tests Test 04/18/18 11:02 04/18/18 12:30 04/18/18 16:38 04/18/18 17:00 Glucose (Fingerstick) 165 mg/dL (70-99) 173 mg/dL (70-99) Reticulocyte Count (auto) 0.9 % (0.5-2.5) Prothrombin Time 13.9 SEC (11.7-14.0) Prothromb Time International Ratio 1.1 (0.8-1.1) Iron Level 32 ug/dL (65-175) Total Iron Binding Capacity 150 ug/dL (250-450) Iron Saturation 21 % (15-34) Urine Collection Type Unknown Urine Color Yellow Urine Clarity Clear Urine pH 5.5 Urine Specific [place] 1.015 Urine Protein Negative mg/dL (NEG-TRACE) Urine Glucose (UA) Negative mg/dL (NEG) Urine Ketones (Stick) Negative mg/dL (NEG) Urine Blood Negative (NEG) Urine Nitrite Negative (NEG) Urine Bilirubin Negative (NEG) Urine Urobilinogen Dipstick 1.0 mg/dL (0.2 mg/dL) Urine Leukocyte Esterase Negative (NEG) Urine RBC 0 /HPF (0-2) Urine WBC 1-4 /HPF (0-4) Urine Squamous Epithelial Cells Occ /LPF Urine Bacteria 0 /HPF (0-FEW) Test 04/18/18 21:17 04/19/18 00:00 04/19/18 04:25 04/19/18 07:56 Glucose (Fingerstick) 293 mg/dL (70-99) 155 mg/dL (70-99) Stool Occult Blood Negative (NEG) White Blood Count 9.7 x10^3/uL (4.0-11.0) Red Blood Count 3.69 x10^6/uL (4.30-5.70) Hemoglobin 9.7 g/dL (13.0-17.5) Hematocrit 29.2 % (39.0-53.0) Mean Corpuscular Volume 79 fL (79-100) Mean Corpuscular Hemoglobin 26 pg (25-35) Mean Corpuscular Hemoglobin Concent 33 g/dL (31-37) Red Cell Distribution Width 17.4 % (11.5-14.5) Platelet Count 348 x10^3/uL (140-400) Neutrophils (%) (Auto) 92 % (31-73) Lymphocytes (%) (Auto) 6 % (24-48) Monocytes (%) (Auto) 2 % (0-9) Eosinophils (%) (Auto) 0 % (0-3) Basophils (%) (Auto) 0 % (0-3) Neutrophils # (Auto) 8.9 x10^3uL (1.8-7.7) Lymphocytes # (Auto) 0.6 x10^3/uL (1.0-4.8) Monocytes # (Auto) 0.2 x10^3/uL (0.0-1.1) Eosinophils # (Auto) 0.0 x10^3/uL (0.0-0.7) Basophils # (Auto) 0.0 x10^3/uL (0.0-0.2) Sodium Level 138 mmol/L (136-145) Potassium Level 5.4 mmol/L (3.5-5.1) Chloride Level 104 mmol/L (98-107) Carbon Dioxide Level 27 mmol/L (21-32) Anion Gap 7 (6-14) Blood Urea Nitrogen 18 mg/dL (8-26) Creatinine 1.8 mg/dL (0.7-1.3) Estimated GFR (Cockcroft-Gault) 45.2 Glucose Level 194 mg/dL (70-99) Calcium Level 9.1 mg/dL (8.5-10.1) Iron Level 59 ug/dL (65-175) Total Iron Binding Capacity 180 ug/dL (250-450) Iron Saturation 33 % (15-34) Ferritin 182 ng/mL (26-388) Microbiology 04/17/18 - Final, Resulted 04/17/18 - Final, Resulted 04/17/18 - Final, Resulted 04/17/18 - Final, Resulted 04/17/18 Gram Stain Evaluation - Final, Resulted 04/17/18 Sputum Culture, Resulted Pending Medications Current Medications Albuterol Sulfate (Ventolin Neb Soln) 10 mg 1X ONCE CONT NEB Last administered on 04/17/18at 13:59; Start 04/17/18 at 14:00; Stop 04/17/18 at 14 :01; Status DC Ipratropium [place] (Atrovent) 0.5 mg 1X ONCE NEB Last administered on at 13:59; Start 04/17/18 at 14:00; Stop 04/17/18 at 14:01; Status DC Methylprednisolone Sodium Succinate (SOLU-Medrol 125MG VIAL) 125 mg 1X ONCE IV Last administered on 04/17/18at 14:05; Start 04/17/18 at 14:00; Stop at 14:01; Status DC Ibuprofen (Motrin) 800 mg 1X ONCE PO ; Start 04/17/18 at 14:45; Stop at 14:46; Status UNV Acetaminophen/ Hydrocodone Bitart (Lortab 5/325) 2 tab 1X ONCE PO ; Start at 14:45; Stop 04/17/18 at 14:46; Status UNV Sodium Chloride 1,000 ml @ 1,000 mls/hr 1X ONCE IV Last administered on 04/17at 15:26; Start 04/17/18 at 15:15; Stop 04/17/18 at 16:14; Status DC Magnesium Sulfate 50 ml @ 25 mls/hr 1X ONCE IV Last administered on at 15:26; Start 04/17/18 at 15:15; Stop 04/17/18 at 17:14; Status DC Albuterol Sulfate (Ventolin Neb Soln) 10 mg 1X ONCE CONT NEB Last administered on 04/17/18at 15:33; Start 04/17/18 at 15:30; Stop 04/17/18 at 15 :31; Status DC Azithromycin 250 ml @ 250 mls/hr 1X ONCE IV Last administered on 04/17/18at 17:25; Start 04/17/18 at 16:15; Stop 04/17/18 at 17:14; Status DC Ceftriaxone Sodium 50 ml @ 100 mls/hr 1X ONCE IV Last administered on at 16:37; Start 04/17/18 at 16:15; Stop 04/17/18 at 16:44; Status DC Ondansetron HCl (Zofran) 4 mg PRN Q8HRS PRN IV NAUSEA/VOMITING; Start at 17:00; Stop 04/17/18 at 20:28; Status DC Acetaminophen (Tylenol) 650 mg PRN Q4HRS PRN PO FEVER; Start 04/17/18 at 17:00 ; Stop 04/18/18 at 09:51; Status DC Albuterol/ Ipratropium (Duoneb) 3 ml RTQID NEB Last administered on 04/18/18at 07:46; Start 04/17/18 at 20:00; Stop 04/18/18 at 09:52; Status DC Insulin Human Lispro (HumaLOG) 0-5 UNITS [id number] SQ Last administered on at 21:50; Start 04/17/18 at 21:00 Dextrose (Dextrose 50%-Water Syringe) 12.5 gm PRN Q15MIN PRN IV SEE COMMENTS; Start 04/17/18 at 20:00 Guaifenesin (Robitussin Dm) 10 ml PRN Q4HRS PRN PO COUGH Last administered on 04/18/18at 00:50; Start 04/17/18 at 20:00 Ringer's Solution 1,000 ml @ 100 mls/hr Q10H IV Last administered on at 03:00; Start 04/17/18 at 21:00 Ondansetron HCl (Zofran) 4 mg PRN Q6HRS PRN IV NAUSEA/VOMITING; Start at 20:15; Stop 04/18/18 at 09:51; Status DC Oxycodone HCl (Roxicodone) 5 mg PRN Q3HRS PRN PO BREAKTHROUGH PAIN; Start at 20:15 Senna/Docusate Sodium (Senna Plus) 1 tab BID PO Last administered on at 21:41; Start 04/17/18 at 21:00 Heparin Sodium (Porcine) (Heparin Sodium) 5,000 unit Q12HR SQ Last administered on 04/18/18at 21:50; Start 04/17/18 at 21:00 Acetaminophen (Tylenol) 650 mg PRN Q6HRS PRN PO FEVER; Start 04/18/18 at 10:00 Ondansetron HCl (Zofran) 4 mg PRN Q6HRS PRN IV NAUSEA/VOMITING; Start at 10:00 Morphine Sulfate (Morphine Sulfate) 2 mg PRN Q2HR PRN IV MODERATE TO SEVERE PAIN; Start 04/18/18 at 10:00 Tramadol HCl (Ultram) 50 mg PRN Q6HRS PRN PO MILD TO MODERATE PAIN; Start at 10:00 Docusate Sodium (Colace) 100 mg PRN DAILY PRN PO CONSTIPATION; Start 04/18/18 at 10:00 Albuterol/ Ipratropium (Duoneb) 3 ml RTQID NEB Last administered on 04/19/18at 07:41; Start 04/18/18 at 12:00 Albuterol Sulfate (Ventolin Neb Soln) 2.5 mg PRN Q2HR PRN NEB SHORTNESS OF BREATH; Start 04/18/18 at 10:00 Guaifenesin (Mucinex) 600 mg BID PO Last administered on 04/18/18at 21:41; Start 04/18/18 at 10:00 Methylprednisolone Sodium Succinate (SOLU-Medrol 40MG VIAL) 40 mg Q8HRS IV Last administered on 04/19/18at 05:42; Start 04/18/18 at 14:00 Famotidine (Pepcid) 20 mg QHS PO Last administered on 04/18/18at 21:41; Start 04/18/18 at 21:00 Levofloxacin/ Dextrose 150 ml @ 100 mls/hr 1X ONCE IV Last administered on at 10:37; Start 04/18/18 at 10:00; Stop 04/18/18 at 11:29; Status DC Levofloxacin/ Dextrose (Levaquin Per Pharmacy) 1 each PRN DAILY PRN MC SEE COMMENTS; Start 04/18/18 at 10:00 Levofloxacin/ Dextrose 50 ml @ 50 mls/hr Q24H IV ; Start 04/19/18 at 11:00 Lactobacillus Rhamnosus (Culturelle) 1 cap BID PO Last administered on at 21:41; Start 04/18/18 at 21:00 Ringer's Solution 1,000 ml @ 50 mls/hr Q20H IV ; Start 04/19/18 at 07:26; Stop 04/19/18 at 19:25 Midazolam HCl (Versed) 2 mg PRN 1X PRN IV PRIOR TO PROCEDURE; Start 04/19/18 at 07:45; Stop 04/20/18 at 07:44 Fentanyl Citrate (Fentanyl 2ml Vial) 25 mcg PRN Q5MIN PRN IV X 2 DOSES FOR PAIN ; Start 04/19/18 at 07:45; Stop 04/20/18 at 07:44 Fentanyl Citrate (Fentanyl 2ml Vial) 50 mcg PRN Q5MIN PRN IV X 2 DOSES FOR PAIN ; Start 04/19/18 at 07:45; Stop 04/20/18 at 07:44 Ringer's Solution 1,000 ml @ 125 mls/hr Q8H IV ; Start 04/19/18 at 07:44; Stop 04/19/18 at 19:43 Lidocaine HCl (Xylocaine-Mpf 1% 2ml Vial) 2 ml 1X PRN PRN ID IV START; Start 04/19/18 at 07:45; Stop 04/20/18 at 07:44 Active Scripts Active Reported Duoneb 0.5-3(2.5) Mg/3 Ml (Albuterol/Ipratropium) 3 Ml Ampul.neb 3 Ml INH BID Lisinopril 10 Mg Tablet 10 Mg PO DAILY Metformin Hcl 500 Mg Tablet 500 Mg PO DAILY [asthma meds] [htn meds] [diabetes type 2 meds] Vitals/I & O Vital Sign - Last 24 Hours 04/18/18 04/18/18 04/18/18 04/18/18 11:00 11:49 15:00 15:47 Temp 98.1 97.9 98.1 97.9 Pulse 78 71 Resp 18 18 B/P (MAP) 146/70 (95) 126/52 (76) Pulse Ox 91 96 O2 Delivery Room Air Room Air Room Air Room Air 04/18/18 04/18/18 04/18/18 04/18/18 19:00 20:15 20:20 23:00 Temp 97.6 97.6 97.6 97.6 Pulse 87 88 Resp 18 18 B/P (MAP) 123/69 (87) 152/73 (99) Pulse Ox 97 96 O2 Delivery Room Air Room Air Room Air Room Air 04/19/18 04/19/18 04/19/18 03:00 07:00 07:41 Temp 98.0 98.6 98.0 98.6 Pulse 81 80 Resp 18 18 B/P (MAP) 135/82 (99) 170/87 (114) Pulse Ox 95 95 94 O2 Delivery Room Air Room Air Room Air Intake and Output 04/18/18 04/18/18 04/19/18 15:00 23:00 07:00 Intake Total 400 ml 4031 ml Balance 400 ml 4031 ml INDER BUENROSTRO MD Apr 19, 2018 08:42
[2018-04-19] MEDS: HEPARIN for SUB-Q USE 5,000 UNIT/ML VIAL. SQ SCH (09:00)
[2018-04-19] MEDS: guaiFENesin DM 200MG/20MG 10 ML SYRUP PO SCH ×2 (09:00→13:44)
[2018-04-19] MEDS: LACTOBACILLUS RHAMNOSUS GG 1 CAPSULE. PO SCH (09:00)
[2018-04-19] MEDS: SENNOSIDES/DOCUSATE 8.6/50MG TABLET. PO SCH (09:00)
[2018-04-19] MEDS ORDERED: LIDOCAINE 1% Multi-Dose 50 ML VIAL. INJ PRN (09:15)
[2018-04-19] MEDS ORDERED: EPINEPHrine 1 MG/ML VIAL INJ PRN (09:15)
[2018-04-19] MEDS ORDERED: 0.9 % SODIUM CHLORIDE 10 ML DISP.SYRIN. IV PRN (09:15)
[2018-04-19] MEDS ORDERED: LIDOCAINE 4% TOPICAL 50 ML SOLUTION. MM PRN (09:15)
[2018-04-19] MEDS ORDERED: LIDOCAINE 2% VISCOUS 100 ML BOTTLE. MM PRN (09:15)
[2018-04-19] MEDS ORDERED: LIDOCAINE 4% TOPICAL 50 ML SOLUTION. ONE ×2 (09:28→09:29)
[2018-04-19] MEDS ORDERED: LIDOCAINE 2% VISCOUS 100 ML BOTTLE. ONE ×2 (09:28→09:29)
[2018-04-19] MEDS ORDERED: EPINEPHrine 1 MG/ML VIAL ONE ×2 (09:28)
[2018-04-19] MEDS ORDERED: LIDOCAINE 1% Multi-Dose 50 ML VIAL. ONE ×2 (09:28→09:29)
[2018-04-19] MEDS ORDERED: PROPOFOL 40 ML IV ONE (10:13)
[2018-04-19] MEDS ORDERED: IV RINGERS,LACTATED 1000ML 1,000 ML IV ONE (10:45)
--- NOTE | 2018-04-19 12:06 | PDOC ---
Renal-Progress Notes Subjective Notes Notes NONE History of Present Illness Hx of present illness STABLE Vitals Vitals Vital Signs Date Time Temp Pulse Resp B/P (MAP) Pulse Ox O2 Delivery O2 Flow Rate FiO2 04/19/18 11:55 95.7 89 20 165/77 95 Room Air 95.7 04/19/18 11:45 2 Weight Weight [ ] I.O. Intake and Output Intake and Output 04/19/18 07:00 Intake Total 4431 ml Balance 4431 ml Intake Oral 1160 ml IV Total 3271 ml # Voids 5 # Bowel Movements 2 Labs Labs Laboratory Tests Test 04/18/18 12:30 04/18/18 16:38 04/18/18 17:00 04/18/18 21:17 Reticulocyte Count (auto) 0.9 % (0.5-2.5) Prothrombin Time 13.9 SEC (11.7-14.0) Prothromb Time International Ratio 1.1 (0.8-1.1) Iron Level 32 ug/dL (65-175) Total Iron Binding Capacity 150 ug/dL (250-450) Iron Saturation 21 % (15-34) Glucose (Fingerstick) 173 mg/dL (70-99) 293 mg/dL (70-99) Urine Collection Type Unknown Urine Color Yellow Urine Clarity Clear Urine pH 5.5 Urine Specific [place] 1.015 Urine Protein Negative mg/dL (NEG-TRACE) Urine Glucose (UA) Negative mg/dL (NEG) Urine Ketones (Stick) Negative mg/dL (NEG) Urine Blood Negative (NEG) Urine Nitrite Negative (NEG) Urine Bilirubin Negative (NEG) Urine Urobilinogen Dipstick 1.0 mg/dL (0.2 mg/dL) Urine Leukocyte Esterase Negative (NEG) Urine RBC 0 /HPF (0-2) Urine WBC 1-4 /HPF (0-4) Urine Squamous Epithelial Cells Occ /LPF Urine Bacteria 0 /HPF (0-FEW) Test 04/19/18 00:00 04/19/18 04:25 04/19/18 07:56 Stool Occult Blood Negative (NEG) White Blood Count 9.7 x10^3/uL (4.0-11.0) Red Blood Count 3.69 x10^6/uL (4.30-5.70) Hemoglobin 9.7 g/dL (13.0-17.5) Hematocrit 29.2 % (39.0-53.0) Mean Corpuscular Volume 79 fL (79-100) Mean Corpuscular Hemoglobin 26 pg (25-35) Mean Corpuscular Hemoglobin Concent 33 g/dL (31-37) Red Cell Distribution Width 17.4 % (11.5-14.5) Platelet Count 348 x10^3/uL (140-400) Neutrophils (%) (Auto) 92 % (31-73) Lymphocytes (%) (Auto) 6 % (24-48) Monocytes (%) (Auto) 2 % (0-9) Eosinophils (%) (Auto) 0 % (0-3) Basophils (%) (Auto) 0 % (0-3) Neutrophils # (Auto) 8.9 x10^3uL (1.8-7.7) Lymphocytes # (Auto) 0.6 x10^3/uL (1.0-4.8) Monocytes # (Auto) 0.2 x10^3/uL (0.0-1.1) Eosinophils # (Auto) 0.0 x10^3/uL (0.0-0.7) Basophils # (Auto) 0.0 x10^3/uL (0.0-0.2) Sodium Level 138 mmol/L (136-145) Potassium Level 5.4 mmol/L (3.5-5.1) Chloride Level 104 mmol/L (98-107) Carbon Dioxide Level 27 mmol/L (21-32) Anion Gap 7 (6-14) Blood Urea Nitrogen 18 mg/dL (8-26) Creatinine 1.8 mg/dL (0.7-1.3) Estimated GFR (Cockcroft-Gault) 45.2 Glucose Level 194 mg/dL (70-99) Calcium Level 9.1 mg/dL (8.5-10.1) Iron Level 59 ug/dL (65-175) Total Iron Binding Capacity 180 ug/dL (250-450) Iron Saturation 33 % (15-34) Ferritin 182 ng/mL (26-388) Vitamin B12 Level 432 pg/mL (247-911) Glucose (Fingerstick) 155 mg/dL (70-99) Micro Micro Microbiology 04/17/18 - Final, Resulted 04/17/18 - Final, Resulted 04/17/18 - Final, Resulted 04/17/18 - Final, Resulted 04/17/18 Gram Stain Evaluation - Final, Resulted 04/17/18 Sputum Culture, Resulted Pending Review of Systems Constitutional: yes: weakness, alert, oriented Ears/Nose/Throat: Yes: no symptom reported Eyes: Yes: no symptom reported Pulmonary: Yes dyspnea Cardiovascular: Yes no symptom reported Gastrointestional: Yes: no symptom reported Genitourinary: Yes: no symptom reported Musculoskeletal: Yes: no symptom reported Skin: Yes no symptom reported Psychiatric/Neurological: Yes: no symptom reported Endocrine: Yes: no symptom reported Physical Exam General Appearance: no apparent distress Respiratory: bilateral CTA Heart: S1S2 Abdomen: soft, bowel sounds present Genitourinary: bladder flat Extremities: pulses present Neurology: alert Assessment Assessment IMP AECOPD LUNG MASS LEUCOCYTOSIS CKD STAGE 3-CR STABLE-SONO NEG MILD HYPERKALEMIA PLAN BRONCH TODAY CHANGE LR TO NS LABS IN AM TRISTIN COVINGTON MD Apr 19, 2018 12:06
--- NOTE | 2018-04-19 12:09 | PDOC ---
PULMONARY PROGRESS NOTES Subjective NO SOA, Vitals Vital Signs Date Time Temp Pulse Resp B/P (MAP) Pulse Ox O2 Delivery O2 Flow Rate FiO2 04/19/18 11:55 95.7 89 20 165/77 95 Room Air 95.7 04/19/18 11:45 2 General: Alert, No acute distress Lungs: Other (decrease left base) Cardiovascular: S1 Abdomen: Soft Neuro Exam: Alert Extremities: No Edema Skin: Warm Labs Laboratory Tests Test 04/17/18 13:46 04/17/18 18:16 04/17/18 21:03 04/18/18 05:05 White Blood Count 15.3 x10^3/uL (4.0-11.0) 15.6 x10^3/uL (4.0-11.0) Red Blood Count 3.80 x10^6/uL (4.30-5.70) 3.40 x10^6/uL (4.30-5.70) Hemoglobin 10.0 g/dL (13.0-17.5) 8.7 g/dL (13.0-17.5) Hematocrit 29.6 % (39.0-53.0) 26.7 % (39.0-53.0) Mean Corpuscular Volume 78 fL (79-100) 79 fL (79-100) Mean Corpuscular Hemoglobin 26 pg (25-35) 26 pg (25-35) Mean Corpuscular Hemoglobin Concent 34 g/dL (31-37) 33 g/dL (31-37) Red Cell Distribution Width 17.3 % (11.5-14.5) 17.4 % (11.5-14.5) Platelet Count 440 x10^3/uL (140-400) 364 x10^3/uL (140-400) Neutrophils (%) (Auto) 85 % (31-73) 90 % (31-73) Lymphocytes (%) (Auto) 8 % (24-48) 6 % (24-48) Monocytes (%) (Auto) 5 % (0-9) 4 % (0-9) Eosinophils (%) (Auto) 2 % (0-3) 0 % (0-3) Basophils (%) (Auto) 1 % (0-3) 0 % (0-3) Neutrophils # (Auto) 13.0 x10^3uL (1.8-7.7) 14.0 x10^3uL (1.8-7.7) Lymphocytes # (Auto) 1.2 x10^3/uL (1.0-4.8) 1.0 x10^3/uL (1.0-4.8) Monocytes # (Auto) 0.7 x10^3/uL (0.0-1.1) 0.6 x10^3/uL (0.0-1.1) Eosinophils # (Auto) 0.3 x10^3/uL (0.0-0.7) 0.0 x10^3/uL (0.0-0.7) Basophils # (Auto) 0.1 x10^3/uL (0.0-0.2) 0.0 x10^3/uL (0.0-0.2) Segmented Neutrophils % 77 % (35-66) Lymphocytes % 12 % (24-48) Monocytes % 4 % (0-10) Eosinophils % 4 % (0-5) Basophils % 3 % (0-3) Platelet Estimate Adequate (ADEQUATE) Large Platelets Occ Anisocytosis Slight Microcytosis Slight Sodium Level 137 mmol/L (136-145) 139 mmol/L (136-145) Potassium Level 3.9 mmol/L (3.5-5.1) 4.4 mmol/L (3.5-5.1) Chloride Level 102 mmol/L (98-107) 104 mmol/L (98-107) Carbon Dioxide Level 24 mmol/L (21-32) 25 mmol/L (21-32) Anion Gap 11 (6-14) 10 (6-14) Blood Urea Nitrogen 14 mg/dL (8-26) 16 mg/dL (8-26) Creatinine 1.9 mg/dL (0.7-1.3) 1.7 mg/dL (0.7-1.3) Estimated GFR (Cockcroft-Gault) 35.1 48.3 Glucose Level 204 mg/dL (70-99) 180 mg/dL (70-99) Calcium Level 9.8 mg/dL (8.5-10.1) 8.7 mg/dL (8.5-10.1) Troponin I Quantitative < 0.017 ng/mL (0.000-0.055) UM-Rox-B-Type Natriuretic Peptide 391 pg/mL (0-124) Procalcitonin 0.24 ng/mL (0.00-0.10) Ethyl Alcohol Level < 10 mg/dL (0-10) Glucose (Fingerstick) 189 mg/dL (70-99) 243 mg/dL (70-99) Ferritin 202 ng/mL (26-388) Test 04/18/18 07:46 04/18/18 11:02 04/18/18 12:30 04/18/18 16:38 Glucose (Fingerstick) 105 mg/dL (70-99) 165 mg/dL (70-99) 173 mg/dL (70-99) Reticulocyte Count (auto) 0.9 % (0.5-2.5) Prothrombin Time 13.9 SEC (11.7-14.0) Prothromb Time International Ratio 1.1 (0.8-1.1) Iron Level 32 ug/dL (65-175) Total Iron Binding Capacity 150 ug/dL (250-450) Iron Saturation 21 % (15-34) Test 04/18/18 17:00 04/18/18 21:17 04/19/18 00:00 04/19/18 04:25 Urine Collection Type Unknown Urine Color Yellow Urine Clarity Clear Urine pH 5.5 Urine Specific [place] 1.015 Urine Protein Negative mg/dL (NEG-TRACE) Urine Glucose (UA) Negative mg/dL (NEG) Urine Ketones (Stick) Negative mg/dL (NEG) Urine Blood Negative (NEG) Urine Nitrite Negative (NEG) Urine Bilirubin Negative (NEG) Urine Urobilinogen Dipstick 1.0 mg/dL (0.2 mg/dL) Urine Leukocyte Esterase Negative (NEG) Urine RBC 0 /HPF (0-2) Urine WBC 1-4 /HPF (0-4) Urine Squamous Epithelial Cells Occ /LPF Urine Bacteria 0 /HPF (0-FEW) Glucose (Fingerstick) 293 mg/dL (70-99) Stool Occult Blood Negative (NEG) White Blood Count 9.7 x10^3/uL (4.0-11.0) Red Blood Count 3.69 x10^6/uL (4.30-5.70) Hemoglobin 9.7 g/dL (13.0-17.5) Hematocrit 29.2 % (39.0-53.0) Mean Corpuscular Volume 79 fL (79-100) Mean Corpuscular Hemoglobin 26 pg (25-35) Mean Corpuscular Hemoglobin Concent 33 g/dL (31-37) Red Cell Distribution Width 17.4 % (11.5-14.5) Platelet Count 348 x10^3/uL (140-400) Neutrophils (%) (Auto) 92 % (31-73) Lymphocytes (%) (Auto) 6 % (24-48) Monocytes (%) (Auto) 2 % (0-9) Eosinophils (%) (Auto) 0 % (0-3) Basophils (%) (Auto) 0 % (0-3) Neutrophils # (Auto) 8.9 x10^3uL (1.8-7.7) Lymphocytes # (Auto) 0.6 x10^3/uL (1.0-4.8) Monocytes # (Auto) 0.2 x10^3/uL (0.0-1.1) Eosinophils # (Auto) 0.0 x10^3/uL (0.0-0.7) Basophils # (Auto) 0.0 x10^3/uL (0.0-0.2) Sodium Level 138 mmol/L (136-145) Potassium Level 5.4 mmol/L (3.5-5.1) Chloride Level 104 mmol/L (98-107) Carbon Dioxide Level 27 mmol/L (21-32) Anion Gap 7 (6-14) Blood Urea Nitrogen 18 mg/dL (8-26) Creatinine 1.8 mg/dL (0.7-1.3) Estimated GFR (Cockcroft-Gault) 45.2 Glucose Level 194 mg/dL (70-99) Calcium Level 9.1 mg/dL (8.5-10.1) Iron Level 59 ug/dL (65-175) Total Iron Binding Capacity 180 ug/dL (250-450) Iron Saturation 33 % (15-34) Ferritin 182 ng/mL (26-388) Vitamin B12 Level 432 pg/mL (247-911) Test 04/19/18 07:56 Glucose (Fingerstick) 155 mg/dL (70-99) Laboratory Tests Test 04/18/18 12:30 04/18/18 16:38 04/18/18 17:00 04/18/18 21:17 Reticulocyte Count (auto) 0.9 % (0.5-2.5) Prothrombin Time 13.9 SEC (11.7-14.0) Prothromb Time International Ratio 1.1 (0.8-1.1) Iron Level 32 ug/dL (65-175) Total Iron Binding Capacity 150 ug/dL (250-450) Iron Saturation 21 % (15-34) Glucose (Fingerstick) 173 mg/dL (70-99) 293 mg/dL (70-99) Urine Collection Type Unknown Urine Color Yellow Urine Clarity Clear Urine pH 5.5 Urine Specific [place] 1.015 Urine Protein Negative mg/dL (NEG-TRACE) Urine Glucose (UA) Negative mg/dL (NEG) Urine Ketones (Stick) Negative mg/dL (NEG) Urine Blood Negative (NEG) Urine Nitrite Negative (NEG) Urine Bilirubin Negative (NEG) Urine Urobilinogen Dipstick 1.0 mg/dL (0.2 mg/dL) Urine Leukocyte Esterase Negative (NEG) Urine RBC 0 /HPF (0-2) Urine WBC 1-4 /HPF (0-4) Urine Squamous Epithelial Cells Occ /LPF Urine Bacteria 0 /HPF (0-FEW) Test 04/19/18 00:00 04/19/18 04:25 04/19/18 07:56 Stool Occult Blood Negative (NEG) White Blood Count 9.7 x10^3/uL (4.0-11.0) Red Blood Count 3.69 x10^6/uL (4.30-5.70) Hemoglobin 9.7 g/dL (13.0-17.5) Hematocrit 29.2 % (39.0-53.0) Mean Corpuscular Volume 79 fL (79-100) Mean Corpuscular Hemoglobin 26 pg (25-35) Mean Corpuscular Hemoglobin Concent 33 g/dL (31-37) Red Cell Distribution Width 17.4 % (11.5-14.5) Platelet Count 348 x10^3/uL (140-400) Neutrophils (%) (Auto) 92 % (31-73) Lymphocytes (%) (Auto) 6 % (24-48) Monocytes (%) (Auto) 2 % (0-9) Eosinophils (%) (Auto) 0 % (0-3) Basophils (%) (Auto) 0 % (0-3) Neutrophils # (Auto) 8.9 x10^3uL (1.8-7.7) Lymphocytes # (Auto) 0.6 x10^3/uL (1.0-4.8) Monocytes # (Auto) 0.2 x10^3/uL (0.0-1.1) Eosinophils # (Auto) 0.0 x10^3/uL (0.0-0.7) Basophils # (Auto) 0.0 x10^3/uL (0.0-0.2) Sodium Level 138 mmol/L (136-145) Potassium Level 5.4 mmol/L (3.5-5.1) Chloride Level 104 mmol/L (98-107) Carbon Dioxide Level 27 mmol/L (21-32) Anion Gap 7 (6-14) Blood Urea Nitrogen 18 mg/dL (8-26) Creatinine 1.8 mg/dL (0.7-1.3) Estimated GFR (Cockcroft-Gault) 45.2 Glucose Level 194 mg/dL (70-99) Calcium Level 9.1 mg/dL (8.5-10.1) Iron Level 59 ug/dL (65-175) Total Iron Binding Capacity 180 ug/dL (250-450) Iron Saturation 33 % (15-34) Ferritin 182 ng/mL (26-388) Vitamin B12 Level 432 pg/mL (247-911) Glucose (Fingerstick) 155 mg/dL (70-99) Medications Active Scripts Medications Dose Route/Sig Max Daily Dose Days Date Category Duoneb 0.5-3(2.5) Mg/3 Ml (Albuterol/Ipratropium) 3 Ml Ampul.neb 3 Ml INH BID 04/17/18 Reported Lisinopril 10 Mg Tablet 10 Mg PO DAILY 04/17/18 Reported Metformin Hcl 500 Mg Tablet 500 Mg PO DAILY 04/17/18 Reported [asthma meds] 04/17/18 Reported [htn meds] 04/17/18 Reported [diabetes type 2 meds] 04/17/18 Reported Impression . 1. Dyspnea secondary to multifactorial etiologies including acute exacerbation of chronic obstructive pulmonary disease and suspected bronchogenic cancer involving the left lower lobe and possible in the right middle lobe. 2. Abnormal CT chest with mass-like consolidation involving the left lower lobe with possible endobronchial lesion in the left lower lobe as well. There is left hilar prominence and there is consolidation in the right middle lobe. Malignancy is a concern, Bronchoscopy is scheduled for today 3. Renal insufficiency. 4. Leukocytosis could be postobstructive pneumonia. Plan . 1. Discussed with the patient regarding the risk and benefits of bronchoscopy and he agrees to proceed with it. 2. bronchoscopy scheduled this morning. 3. Continue present bronchodilators. 4. Continue IV steroids. 5. Continue antibiotics. 6. Further recommendations to follow after bronchoscopy. YUSRA BARAKAT MD Apr 19, 2018 12:09
[2018-04-19 12:14] LABS: UR PROTEIN RD 25.1 mg/dL (Not Estab.)
--- NOTE | 2018-04-19 12:17 | OP ---
DATE OF SURGERY: INDICATIONS: Lung mass, abnormal CT chest. DESCRIPTION OF PROCEDURE: Informed consent was obtained from the patient. All risks and benefits were explained. He agreed to proceed with the procedure. Propofol was used by anesthesia for sedation. Bronch was introduced through the right nostril. There were thick amount of purulent secretions, which were removed from the upper airway. Vocal cords were reached. They moved equally with respiration. The trachea was entered. Minimal white secretions seen in the trachea. Kim was sharp. Right lung was first examined. All subsegments of right upper, right middle and right lower lobe were examined. There were some slimy secretions in the right middle lobe, which were aspirated and bronchoalveolar lavage performed from right middle lobe. Bronch was then introduced into the left lung. There was extensive mucosal tumor involving the junction of the lingula and left lower lobe and causing distorted anatomy. There was significant narrowing of the opening of the left lower lobe and a scope could not be passed. Cytology brush, bronchial wash and biopsies x 2 were performed from this area. Oozing of blood was noticed, which was controlled with epinephrine. The patient tolerated the procedure well. IMPRESSION: 1. Severe mucosal abnormality seen at the junction of the lingula and left lower lobe causing distorted anatomy with splaying of the subcarina at the junction of lingula and left lower lobe. There was significant narrowing of the left lower lobe opening resulting from tumor abnormality. Biopsies x 2, cytology brush x 1 and bronchial wash was performed from this area. Bronchoalveolar lavage performed from the right middle lobe as well. There was no significant endobronchial lesion seen on the right side. 2. Follow the results of culture and biopsy. YUSRA BARAKAT MD DR: DARIEN/purnima JOB#: [id number] / [id number]
[2018-04-19 12:37] VITALS: BP 157/87
[2018-04-19] MEDS ORDERED: LEVO500T59 PO (13:22)
--- NOTE | 2018-04-19 13:25 | PDOC3 ---
Discharge Summary Visit Information Date of Admission: Apr 17, 2018 Date of Discharge: Apr 19, 2018 Admitting Diagnosis Comment: Acute COPD exacerbation Right middle lobe pneumonia - vs Lung Mass s/p bronch - likely mass- OP heme onc consulted 04/19/18 ARF vs. CKD3 DM2 - BPH - prevous smoker microcytic anemia Brief Hospital Course Allergies Allergies Coded Allergies Type Severity Reaction Last Updated Verified No Known Drug Allergies 04/19/18 No Vital Signs Vital Signs Date Time Temp Pulse Resp B/P (MAP) Pulse Ox O2 Delivery O2 Flow Rate FiO2 04/19/18 12:37 96.6 81 18 157/87 (110) 96 Room Air 96.6 04/19/18 11:45 2 Lab Results Laboratory Tests Test 04/17/18 13:46 04/17/18 18:16 04/17/18 21:03 04/18/18 05:05 White Blood Count 15.3 x10^3/uL (4.0-11.0) 15.6 x10^3/uL (4.0-11.0) Red Blood Count 3.80 x10^6/uL (4.30-5.70) 3.40 x10^6/uL (4.30-5.70) Hemoglobin 10.0 g/dL (13.0-17.5) 8.7 g/dL (13.0-17.5) Hematocrit 29.6 % (39.0-53.0) 26.7 % (39.0-53.0) Mean Corpuscular Volume 78 fL (79-100) 79 fL (79-100) Mean Corpuscular Hemoglobin 26 pg (25-35) 26 pg (25-35) Mean Corpuscular Hemoglobin Concent 34 g/dL (31-37) 33 g/dL (31-37) Red Cell Distribution Width 17.3 % (11.5-14.5) 17.4 % (11.5-14.5) Platelet Count 440 x10^3/uL (140-400) 364 x10^3/uL (140-400) Neutrophils (%) (Auto) 85 % (31-73) 90 % (31-73) Lymphocytes (%) (Auto) 8 % (24-48) 6 % (24-48) Monocytes (%) (Auto) 5 % (0-9) 4 % (0-9) Eosinophils (%) (Auto) 2 % (0-3) 0 % (0-3) Basophils (%) (Auto) 1 % (0-3) 0 % (0-3) Neutrophils # (Auto) 13.0 x10^3uL (1.8-7.7) 14.0 x10^3uL (1.8-7.7) Lymphocytes # (Auto) 1.2 x10^3/uL (1.0-4.8) 1.0 x10^3/uL (1.0-4.8) Monocytes # (Auto) 0.7 x10^3/uL (0.0-1.1) 0.6 x10^3/uL (0.0-1.1) Eosinophils # (Auto) 0.3 x10^3/uL (0.0-0.7) 0.0 x10^3/uL (0.0-0.7) Basophils # (Auto) 0.1 x10^3/uL (0.0-0.2) 0.0 x10^3/uL (0.0-0.2) Segmented Neutrophils % 77 % (35-66) Lymphocytes % 12 % (24-48) Monocytes % 4 % (0-10) Eosinophils % 4 % (0-5) Basophils % 3 % (0-3) Platelet Estimate Adequate (ADEQUATE) Large Platelets Occ Anisocytosis Slight Microcytosis Slight Sodium Level 137 mmol/L (136-145) 139 mmol/L (136-145) Potassium Level 3.9 mmol/L (3.5-5.1) 4.4 mmol/L (3.5-5.1) Chloride Level 102 mmol/L (98-107) 104 mmol/L (98-107) Carbon Dioxide Level 24 mmol/L (21-32) 25 mmol/L (21-32) Anion Gap 11 (6-14) 10 (6-14) Blood Urea Nitrogen 14 mg/dL (8-26) 16 mg/dL (8-26) Creatinine 1.9 mg/dL (0.7-1.3) 1.7 mg/dL (0.7-1.3) Estimated GFR (Cockcroft-Gault) 35.1 48.3 Glucose Level 204 mg/dL (70-99) 180 mg/dL (70-99) Calcium Level 9.8 mg/dL (8.5-10.1) 8.7 mg/dL (8.5-10.1) Troponin I Quantitative < 0.017 ng/mL (0.000-0.055) KL-Xbw-Y-Type Natriuretic Peptide 391 pg/mL (0-124) Procalcitonin 0.24 ng/mL (0.00-0.10) Ethyl Alcohol Level < 10 mg/dL (0-10) Glucose (Fingerstick) 189 mg/dL (70-99) 243 mg/dL (70-99) Ferritin 202 ng/mL (26-388) Test 04/18/18 07:46 04/18/18 11:02 04/18/18 12:30 04/18/18 16:38 Glucose (Fingerstick) 105 mg/dL (70-99) 165 mg/dL (70-99) 173 mg/dL (70-99) Reticulocyte Count (auto) 0.9 % (0.5-2.5) Prothrombin Time 13.9 SEC (11.7-14.0) Prothromb Time International Ratio 1.1 (0.8-1.1) Iron Level 32 ug/dL (65-175) Total Iron Binding Capacity 150 ug/dL (250-450) Iron Saturation 21 % (15-34) Test 04/18/18 17:00 04/18/18 21:17 04/19/18 00:00 04/19/18 04:25 Urine Collection Type Unknown Urine Color Yellow Urine Clarity Clear Urine pH 5.5 Urine Specific [place] 1.015 Urine Protein 25.1 mg/dL (Not Estab.) Urine Glucose (UA) Negative mg/dL (NEG) Urine Ketones (Stick) Negative mg/dL (NEG) Urine Blood Negative (NEG) Urine Nitrite Negative (NEG) Urine Bilirubin Negative (NEG) Urine Urobilinogen Dipstick 1.0 mg/dL (0.2 mg/dL) Urine Leukocyte Esterase Negative (NEG) Urine RBC 0 /HPF (0-2) Urine WBC 1-4 /HPF (0-4) Urine Squamous Epithelial Cells Occ /LPF Urine Bacteria 0 /HPF (0-FEW) Urine Random Sodium 80 mmol/L (Not Estab.) Urine Creatinine 63.2 mg/dL (Not Estab.) Urine Protein/Creatinine Ratio 397 mg/g creat (0-200) Glucose (Fingerstick) 293 mg/dL (70-99) Stool Occult Blood Negative (NEG) White Blood Count 9.7 x10^3/uL (4.0-11.0) Red Blood Count 3.69 x10^6/uL (4.30-5.70) Hemoglobin 9.7 g/dL (13.0-17.5) Hematocrit 29.2 % (39.0-53.0) Mean Corpuscular Volume 79 fL (79-100) Mean Corpuscular Hemoglobin 26 pg (25-35) Mean Corpuscular Hemoglobin Concent 33 g/dL (31-37) Red Cell Distribution Width 17.4 % (11.5-14.5) Platelet Count 348 x10^3/uL (140-400) Neutrophils (%) (Auto) 92 % (31-73) Lymphocytes (%) (Auto) 6 % (24-48) Monocytes (%) (Auto) 2 % (0-9) Eosinophils (%) (Auto) 0 % (0-3) Basophils (%) (Auto) 0 % (0-3) Neutrophils # (Auto) 8.9 x10^3uL (1.8-7.7) Lymphocytes # (Auto) 0.6 x10^3/uL (1.0-4.8) Monocytes # (Auto) 0.2 x10^3/uL (0.0-1.1) Eosinophils # (Auto) 0.0 x10^3/uL (0.0-0.7) Basophils # (Auto) 0.0 x10^3/uL (0.0-0.2) Sodium Level 138 mmol/L (136-145) Potassium Level 5.4 mmol/L (3.5-5.1) Chloride Level 104 mmol/L (98-107) Carbon Dioxide Level 27 mmol/L (21-32) Anion Gap 7 (6-14) Blood Urea Nitrogen 18 mg/dL (8-26) Creatinine 1.8 mg/dL (0.7-1.3) Estimated GFR (Cockcroft-Gault) 45.2 Glucose Level 194 mg/dL (70-99) Calcium Level 9.1 mg/dL (8.5-10.1) Iron Level 59 ug/dL (65-175) Total Iron Binding Capacity 180 ug/dL (250-450) Iron Saturation 33 % (15-34) Ferritin 182 ng/mL (26-388) Vitamin B12 Level 432 pg/mL (247-911) Test 04/19/18 07:56 04/19/18 12:24 Glucose (Fingerstick) 155 mg/dL (70-99) 169 mg/dL (70-99) Laboratory Tests Test 04/18/18 16:38 04/18/18 17:00 04/18/18 21:17 04/19/18 00:00 Glucose (Fingerstick) 173 mg/dL (70-99) 293 mg/dL (70-99) Urine Collection Type Unknown Urine Color Yellow Urine Clarity Clear Urine pH 5.5 Urine Specific [place] 1.015 Urine Protein 25.1 mg/dL (Not Estab.) Urine Glucose (UA) Negative mg/dL (NEG) Urine Ketones (Stick) Negative mg/dL (NEG) Urine Blood Negative (NEG) Urine Nitrite Negative (NEG) Urine Bilirubin Negative (NEG) Urine Urobilinogen Dipstick 1.0 mg/dL (0.2 mg/dL) Urine Leukocyte Esterase Negative (NEG) Urine RBC 0 /HPF (0-2) Urine WBC 1-4 /HPF (0-4) Urine Squamous Epithelial Cells Occ /LPF Urine Bacteria 0 /HPF (0-FEW) Urine Random Sodium 80 mmol/L (Not Estab.) Urine Creatinine 63.2 mg/dL (Not Estab.) Urine Protein/Creatinine Ratio 397 mg/g creat (0-200) Stool Occult Blood Negative (NEG) Test 04/19/18 04:25 04/19/18 07:56 04/19/18 12:24 White Blood Count 9.7 x10^3/uL (4.0-11.0) Red Blood Count 3.69 x10^6/uL (4.30-5.70) Hemoglobin 9.7 g/dL (13.0-17.5) Hematocrit 29.2 % (39.0-53.0) Mean Corpuscular Volume 79 fL (79-100) Mean Corpuscular Hemoglobin 26 pg (25-35) Mean Corpuscular Hemoglobin Concent 33 g/dL (31-37) Red Cell Distribution Width 17.4 % (11.5-14.5) Platelet Count 348 x10^3/uL (140-400) Neutrophils (%) (Auto) 92 % (31-73) Lymphocytes (%) (Auto) 6 % (24-48) Monocytes (%) (Auto) 2 % (0-9) Eosinophils (%) (Auto) 0 % (0-3) Basophils (%) (Auto) 0 % (0-3) Neutrophils # (Auto) 8.9 x10^3uL (1.8-7.7) Lymphocytes # (Auto) 0.6 x10^3/uL (1.0-4.8) Monocytes # (Auto) 0.2 x10^3/uL (0.0-1.1) Eosinophils # (Auto) 0.0 x10^3/uL (0.0-0.7) Basophils # (Auto) 0.0 x10^3/uL (0.0-0.2) Sodium Level 138 mmol/L (136-145) Potassium Level 5.4 mmol/L (3.5-5.1) Chloride Level 104 mmol/L (98-107) Carbon Dioxide Level 27 mmol/L (21-32) Anion Gap 7 (6-14) Blood Urea Nitrogen 18 mg/dL (8-26) Creatinine 1.8 mg/dL (0.7-1.3) Estimated GFR (Cockcroft-Gault) 45.2 Glucose Level 194 mg/dL (70-99) Calcium Level 9.1 mg/dL (8.5-10.1) Iron Level 59 ug/dL (65-175) Total Iron Binding Capacity 180 ug/dL (250-450) Iron Saturation 33 % (15-34) Ferritin 182 ng/mL (26-388) Vitamin B12 Level 432 pg/mL (247-911) Glucose (Fingerstick) 155 mg/dL (70-99) 169 mg/dL (70-99) Brief Hospital Course Mr. Subramanian is a 72 old AA male, ex smoker, admitted for lung mass vs PNA, Bronch done, OP referral to heme onc done and OP levaquin x 7 days- 2notes today , Hemo stable. HAs nebs at home to cont home lisinpril COnsuts: renal, pulmo \Proc bronch 04/19/18 Discharge Information Condition at Discharge: Improved, Stable Disposition/Orders: D/C to Home Scheduled Ipratropium/Albuterol Sulfate (Duoneb 0.5-3(2.5) Mg/3 Ml) 3 Ml Ampul.neb, 3 ML INH BID, (Reported) Entered as Reported by: SHELLEY BASSETT on 04/17/181904 Last Action: New Order on 04/17/181904 by SHELLEY BASSETT Lisinopril (Lisinopril) 10 Mg Tablet, 10 MG PO DAILY, (Reported) Entered as Reported by: SHELLEY BASSETT on 04/17/181903 Last Taken: Unknown Dose on 04/17/18 Last Action: HELD on 04/17/182018 by JOELLEN BEAUCHAMP MD Metformin Hcl (Metformin Hcl) 500 Mg Tablet, 500 MG PO DAILY, (Reported) Entered as Reported by: SHELLEY BASSETT on 04/17/181903 Last Taken: Unknown Dose on 04/17/18 Last Action: HELD on 04/17/182018 by JOELLEN BEAUCHAMP MD Miscellaneous Medications [asthma meds] , (Reported) Entered as Reported by: DUSTIN HAWLEY on 04/17/181354 Last Action: HELD on 04/17/182018 by JOELLEN BEAUCHAMP MD [diabetes type 2 meds] , (Reported) Entered as Reported by: DUSTIN HAWLEY on 04/17/181354 Last Action: HELD on 04/17/182018 by JOELLEN BEAUCHAMP MD [htn meds] , (Reported) Entered as Reported by: DUSTIN HAWLEY on 04/17/181354 Last Action: HELD on 04/17/182018 by MD CHITRA MONTOYA CHERRIE Y MD Apr 19, 2018 13:24
[2018-04-19 15:00] VITALS: BP 152/77
--- NOTE | 2018-04-19 19:46 | CONS ---
DATE OF CONSULTATION: 04/19/2018 REQUESTING PHYSICIAN: Dr. Parker Lutz. REASON FOR CONSULTATION: Lung mass. HISTORY OF PRESENT ILLNESS: The patient is a 72-year-old gentleman who has a history of cigarette smoking 2 packs a day for 50 years that he quit in 2016. He presented to [facility] on 04/17/2018 with complaints of persistent cough and shortness of breath. His cough was nonproductive with no hemoptysis. No chest pain. No fevers, chills or night sweats. No nausea, vomiting. No change in bowel habits. No loss of weight or loss of appetite. No hematemesis, melena or hematochezia. He underwent further evaluation with a CT scan of the chest on 04/17/2018, which revealed mass in the left lower lobe extending back from the hilum measuring 7.1 x 4.6 cm with some peripheral infiltrate-like opacities in the left lower lobe. Other areas of opacities thought to be inflammatory or infectious. Pulmonary consultation was obtained and the patient underwent bronchoscopy on 04/19/[address] Parker Lutz, which revealed severe mucosal abnormality at the junction of the lingula and the left lower lobe causing distorted anatomy and splaying of the subcarina at the junction of the lingula and the left lower lobe. There was significant narrowing of the left lower lobe opening resulting from tumor abnormality. Biopsies were obtained. I was asked to see the patient for further evaluation because of concern for malignancy. PAST MEDICAL HISTORY: Suspected COPD, BPH, diabetes, cholecystectomy, TURP. SOCIAL HISTORY: He smoked 2 packs per day for 50 years that he quit in 2016. He also has history of alcohol. FAMILY HISTORY: Negative for lung cancer. REVIEW OF SYSTEMS: A 12-point review of system was performed. Pertinent positives are mentioned in the history of present illness. Rest of the system review is negative. PHYSICAL EXAMINATION: GENERAL APPEARANCE: The patient is a 72-year-old gentleman who is in no acute cardiorespiratory distress. VITAL SIGNS: Blood pressure 157/87, temperature 96.6. HEENT: Atraumatic, normocephalic. Eyes: No icterus. NECK: Supple. CHEST: Bilaterally symmetrical. No crepitations or rhonchi heard. HEART: S1, S2 normal. ABDOMEN: Soft, nontender. CENTRAL NERVOUS SYSTEM: No focal deficits. LYMPHATICS: No lymphadenopathy. SKIN: No rashes. PSYCHOLOGIC: Mood and affect are appropriate. LABORATORY DATA: On 04/17/2018, WBC 15.3, hemoglobin 10, platelet count 440, reticulocyte count 0.9. WBC normalized at 9.7 on 04/19/2018. Creatinine 1.8, calcium 9.1, iron 59, TIBC 180, iron saturation 33, ferritin 182, B12 432. IMPRESSION AND PLAN: 1. Left lower lobe lung mass, status post bronchoscopy on 04/19/[address] Parker Lutz. The mass measures 7.1 x 4.[address] scan done on 04/17/2018. There is no evidence of metastatic disease. I discussed with Dr. Lutz who felt that this mass is involving more than one lobe and hence, he would not be a surgical candidate. I will await final pathology results. I will also obtain a PET scan and consult Radiation Oncology after the pathology results are available. He would most likely need concurrent chemoradiation therapy. However, I will await above workup before final decision. I discussed in detail with the patient and he understands and agrees with the plan. He will follow up with me in my office in about 1 week. 2. Anemia secondary to chronic kidney disease. Iron studies on 04/19/2018 reveals anemia of chronic disease. Normal ferritin and normal B12. Iron level is 59 with saturation of 33% and TIBC of 180. 3. Chronic kidney disease stage 3, per Nephrology. Appreciate Nephrology consultation. Creatinine is 1.8. JOHAN CRUZ MD DR: JOHNNY/purnima JOB#: [id number] / [id number] DEBID
--- NOTE | 2018-04-20 14:08 | PATHOLOGY ---
[facility] Accession Number: [id number] . 01 Material submitted: . LLL BRONCH BX . 01 Clinical history: . R/O lung mass/cough . 02 Diagnosis: Bronchial biopsy, left lower lobe: - Chronic bronchitis with focal squamous metaplasia. (JPM:aisha; 04/20/2018) . QMS/04/20/2018 . 02 Comment: There is no evidence of malignancy. . 02 Electronically signed: . Matt Escamilla MD, Pathologist NPI- [id number] . 01 Gross description: . The specimen is received in formalin, labeled "Matt Subramanian, RYANNX LLL" and consists of two segments of ng tissue measuring 0.2 cm and 1.2 cm in length and 0.1 cm each in diameter. They are entirely submitted in A1. (SDY; 04/19/2018) SYU/SYU . 02 Pathologist provided ICD-10: J42 . 02 CPT . 820670 Specimen Comment: A courtesy copy of this report has been sent to Specimen Comment: [phone], , , . Specimen Comment: Report sent to ,DR BEAUCHAMP, Specimen Comment: DR DIEHL / DR ALVAREZ Specimen Comment: A duplicate report has been generated due to demographic updates. Performed at: 01 [facility] [address], [place] [id number] MD Armando Kerns MD Phone: [phone] Performed at: 02 [facility] [address] [place], [place] [id number] MD Matt Ecsamilla MD Phone: [phone]
--- NOTE | 2018-04-20 18:08 | PATHOLOGY ---
Note [facility] Accession Number: [id number] TESTS RESULT FLAG UNITS REF RANGE LAB Clinician Provided Cytology Information No. of containers..01 Other (Miscellaneous) Source: RML BAL DIAGNOSIS: RML BAL NEGATIVE FOR MALIGNANT CELLS. FEW BRONCHIAL EPITHELIAL CELLS, FEW MILDLY ATYPICAL SQUAMOUS EPETHELIAL CELLS, AND ACUTE INFLAMMATORY CELLS IDENTIFIED. SCANT CELLULARITY. THIS EAVALUATION INCLUDES EXANMINATION OF A CELL BLOCK. Signed out by: Matt Escamilla MD, Pathologist NPI- [id number] Performed by: Franca Vila, Emulsion Operator ([facility]) Gross description: 01 2ML, COLORLESS, CLEAR /LCS FLAG LEGEND: L-Low Normal,H-High Normal,LL-Alert Low,HH-Alert High <-Panic Low,>-Panic High,A-Abnormal,AA-Critical Abnormal Performed at: 01 [facility] [address] [place] [address] Armando Kerns MD, 02 [facility] [address] [place] [address] Matt Escamilla MD, Specimen Comment: A courtesy copy of this report has been sent to Specimen Comment: [phone]. Specimen Comment: Report sent to Specimen Comment: A duplicate report has been generated due to demographic updates. Performed at: [address] [place], [place] [address] [address], [place], [place] [id number] MD Armando Kerns MD Phone: [phone]
--- NOTE | 2018-04-20 18:08 | PATHOLOGY ---
Note [facility] Accession Number: [id number] TESTS RESULT FLAG UNITS REF RANGE LAB Clinician Provided Cytology Information No. of containers..01 Other (Miscellaneous) Source: LLL BRUSHING DIAGNOSIS: LLL BRUSHING NEGATIVE FOR MALIGNANT CELLS. REACTIVE BRONCHIAL CELLS ARE PRESENT. FEW METAPLASTIC SQUAMOUS EPITHELIAL CELLS PRESENT. RED BLOOD CELLS ARE PRESENT. Signed out by: 02 Matt Escamilla MD, Pathologist NPI- [id number] Performed by: Franca Vila, Scale Agent ([facility]) FLAG LEGEND: L-Low Normal,H-High Normal,LL-Alert Low,HH-Alert High <-Panic Low,>-Panic High,A-Abnormal,AA-Critical Abnormal Performed at: [address] [place] [address] Armando Kerns MD, 02 [facility] [address] [place] [address] Matt Escamilla MD, Specimen Comment: A courtesy copy of this report has been sent to Specimen Comment: [phone]. Specimen Comment: Report sent to Specimen Comment: A duplicate report has been generated due to demographic updates. Performed at: [address], [place], [place] [id number] MD Armando Kerns MD Phone: [phone]
--- NOTE | 2018-04-20 18:08 | PATHOLOGY ---
Note [facility] Accession Number: [id number] TESTS RESULT FLAG UNITS REF RANGE LAB Clinician Provided Cytology Information No. of containers..01 Other (Miscellaneous) Source: LLL BRONCH WAS DIAGNOSIS: LLL BRONCH WAS NEGATIVE FOR MALIGNANT CELLS. FEW BRONCHIAL EPITHELIAL CELLS AND SQUAMOUS EPITHELIAL CELLS ARE PRESENT. INFLAMMATORY CELLS PRESENT. Signed out by: Matt Escamilla MD, Pathologist NPI- [id number] Performed by: Franca Vila, Screen Door Maker ([facility]) Gross description: 01 8ML, RED, CLOUDY /LCS FLAG LEGEND: L-Low Normal,H-High Normal,LL-Alert Low,HH-Alert High <-Panic Low,>-Panic High,A-Abnormal,AA-Critical Abnormal Performed at: [address] [place] [address] Armando Kerns MD, 02 [facility] [address] [place] [address] Matt Escamilla MD, Specimen Comment: A courtesy copy of this report has been sent to Specimen Comment: [phone]. Specimen Comment: Report sent to Specimen Comment: A duplicate report has been generated due to demographic updates. Performed at: [address] [place] [address] [address], [place], [place] [id number] MD Armando Kerns MD Phone: [phone]
--- NOTE | 2018-04-20 18:08 | PATHOLOGY ---
Note [facility] Accession Number: [id number] TESTS RESULT FLAG UNITS REF RANGE LAB Clinician Provided Cytology Information No. of containers..01 Other (Miscellaneous) Source: 01 BRUSH TIP DIAGNOSIS: 02 BRUSH TIP NEGATIVE FOR MALIGNANT CELLS. FEW REACTIVE BRONCHIAL EPITHELIAL CELLS AND SQUAMOUS EPITHELIAL CELLS PRESENT. SCANT CELLULARITY. Signed out by: Matt Escamilla MD, Pathologist NPI- [id number] Performed by: Franca Vila, [employer] Remover ([facility]) Gross description: 01 65ML, COLORLESS, CLEAR /LCS FLAG LEGEND: L-Low Normal,H-High Normal,LL-Alert Low,HH-Alert High <-Panic Low,>-Panic High,A-Abnormal,AA-Critical Abnormal Performed at: [address] [place] [address] Armando Kerns MD, 02 [facility] [address] [place] [address] Matt Escamilla MD, Specimen Comment: A courtesy copy of this report has been sent to Specimen Comment: [phone]. Specimen Comment: Report sent to Specimen Comment: A duplicate report has been generated due to demographic updates. Performed at: [address] [place] [address] [address], [place], [place] [id number] MD Armando Kerns MD Phone: [phone]
== END 2018-04-19 17:26 | disposition home or self-care (01) | DRG 853 ==
LOC: ER 13:35 → 5 NORTH 16:05
PROVIDERS: ADMIT Internal Medicine; ATTEND Internal Medicine
PROC: 0B9J8ZX Drainage of Left Lower Lung Lobe, Via Natural or Artificial Opening Endoscopic, Diagnostic (ICD-10-PCS; principal; 2018-04-17)
PROC: 0BBJ8ZX Excision of Left Lower Lung Lobe, Via Natural or Artificial Opening Endoscopic, Diagnostic (ICD-10-PCS; 2018-04-17)
PROC: 0B9D8ZX Drainage of Right Middle Lung Lobe, Via Natural or Artificial Opening Endoscopic, Diagnostic (ICD-10-PCS; 2018-04-17)
DX: A41.9 Sepsis, unspecified organism (principal); J18.1 Lobar pneumonia, unspecified organism; N17.9 Acute kidney failure, unspecified; J44.0 Chronic obstructive pulmonary disease with (acute) lower respiratory infection; J44.1 Chronic obstructive pulmonary disease with (acute) exacerbation; D63.1 Anemia in chronic kidney disease; D50.9 Iron deficiency anemia, unspecified; N18.3 Chronic kidney disease, stage 3 (moderate); R91.8 Other nonspecific abnormal finding of lung field; I12.9 Hypertensive chronic kidney disease with stage 1 through stage 4 chronic kidney disease, or unspecified chronic kidney disease; E87.5 Hyperkalemia; E11.22 Type 2 diabetes mellitus with diabetic chronic kidney disease; N40.0 Benign prostatic hyperplasia without lower urinary tract symptoms; Z79.84 Long term (current) use of oral hypoglycemic drugs; Z87.891 Personal history of nicotine dependence; Z83.3 Family history of diabetes mellitus; Z79.899 Other long term (current) drug therapy; Z90.49 Acquired absence of other specified parts of digestive tract
CPT/HCPCS: 31622; 36415; 71045; 71250; 76770; 80048; 81001; 82274; 82570; 82607; 82728; 82962; 83540; 83550; 83880; 84145; 84156; 84300; 84484; 85007; 85025; 85045; 85610; 87070; 87205; 88104; 88112; 88305; 93005; 94640; 94644; 94760; 96365; 96367; 96375; G0480; J0171; J0456; J0690; J1644; J1815; J1956; J2704; J2920; J2930; J3475; J7030; J7120; J7613; J7620; J7644; 99285-25